=== PATIENT | male | born 1930 | race Caucasian/White ===

== ENCOUNTER 2019-06-15 16:34 | Inpatient (IN) | payer MEDICARE ==
[~2019-06-15] VITALS: Ht 154.9 cm; Wt 49.0 kg
[2019-06-15] MEDS ORDERED: ALLO300T2 PO (16:53)
[2019-06-15] MEDS ORDERED: CAL1TABL PO (16:53)
[2019-06-15] MEDS ORDERED: ESCI10TA PO (16:53)
[2019-06-15] MEDS ORDERED: DONE5TAB34 PO (16:53)
[2019-06-15] MEDS ORDERED: ATOR40TA PO (16:53)
[2019-06-15] MEDS ORDERED: ASPI1CPM PO (16:53)
[2019-06-15] MEDS ORDERED: IPRA0.2S49 IH (17:08)
[2019-06-15] MEDS ORDERED: HYDR-4077 PO (17:08)
[2019-06-15] MEDS ORDERED: CALC-494 PO (17:08)
[2019-06-15] MEDS ORDERED: NIFE-2 PO (17:08)
[2019-06-15] MEDS ORDERED: NITR0.4T48 SL (17:08)
[2019-06-15] MEDS ORDERED: ALEN70TA6 PO (17:08)
[2019-06-15] MEDS ORDERED: BUME1TAB8 PO (17:08)
[2019-06-15] MEDS ORDERED: COLC0.6C3 PO (17:08)
[2019-06-15] MEDS ORDERED: LOSA100T31 PO (17:08)
[2019-06-15 17:34] LABS: BASOPHILS % (AUTO) 0.2 % (0.0-2.0); EOSINOPHILS % (AUTO) 1.7 % (0.0-6.0); HEMATOCRIT 30 % (39-51); HEMOGLOBIN 10.2 g/dL (13.5-17.5); LYMPHOCYTES # (AUTO) 0.6 /CMM (0.8-4.8); LYMPHOCYTES % (AUTO) 14.8 % (20.0-44.0); MEAN CORPUSCULAR HGB CONC 34 g/dl (31.0-36.0); MEAN CORPUSCULAR VOLUME 101 fL (80-96); MONOCYTES # (AUTO) 0.2 /CMM (0.1-1.30); MONOCYTES % (AUTO) 4.3 % (2.0-12.0); NEUTROPHILS # (AUTO) 3.4 /CMM (1.8-8.9); PLATELET COUNT (AUTO) 140 /CMM (150-450); WHITE BLOOD COUNT (AUTO) 4.3 K/uL (4.3-11.0)
[2019-06-15 17:50] LABS: ALANINE AMINOTRANSFERASE 30 U/L (12-78); ALBUMIN 3.5 g/dL (3.4-5.0); ALKALINE PHOSPHATASE 102 U/L (46-116); ASPARTATE AMINOTRANSFERASE 36 U/L (15-37); BILIRUBIN,DIRECT 0.2 mg/dL (0.0-0.2); BILIRUBIN,TOTAL 0.7 mg/dL (0.2-1.0); CARBON DIOXIDE 23 mmol/L (21-32); CHLORIDE 96 mmol/L (98-107); CREATININE 6.4 mg/dL (0.6-1.3); GLUCOSE 77 mg/dL (74-106); POTASSIUM 4.4 mmol/L (3.5-5.1); SODIUM SERUM 133 mmol/L (136-145); TOTAL PROTEIN, SERUM 6.9 g/dL (6.4-8.2)
[2019-06-15 17:51] LABS: UREA NITROGEN, BLOOD 118 mg/dL (7-18)
--- NOTE | 2019-06-15 18:24 | NUR ---
PAGED [facility].
[2019-06-15] MEDS ORDERED: PIPERACILLIN /TAZOBACTAM 2.25 G in IV D5W 50 ML IV ONE (19:00)
[2019-06-15] MEDS ORDERED: VANCOMYCIN 1 GM in IV D5W 250 ML IV ONE (19:00)
--- NOTE | 2019-06-15 19:13 | NUR ---
Patient awke to name only noted family @ bedside made aware paln of care noted bilateral arms and hands bruises family aware
--- NOTE | 2019-06-15 19:20 | NUR ---
transfer care report to Tommy Mosquera
[2019-06-15] MEDS ORDERED: LIDOCAINE 2% JEL UROJET 10 ML MM ONE (19:29)
--- NOTE | 2019-06-15 19:40 | NUR ---
PAGED [facility].
[2019-06-15 19:42] LABS: APPEARANCE,URINE Clear (CLEAR); BILIRUBIN,URINE Negative (NEGATIVE); BLOOD, URINE Negative Ery/uL (NEGATIVE); COLOR,URINE Yellow (YELLOW); KETONES,URINE Negative (NEGATIVE); LEUKOCYTE ESTERASE ,URINE Negative (NEGATIVE); NITRITE, URINE Negative (NEGATIVE); PROTEIN,URINE 30 mg/dl (NEGATIVE); UGLUCOSE Negative (NEGATIVE); UROBILINOGEN,URINE 0.2 EU/dL (0.2)
--- NOTE | 2019-06-15 20:28 | NUR ---
REPORT GIVEN TO THERESA CARTER.
[2019-06-15] MEDS ORDERED: FEE PK DOSING 1 MIN EA MC ONE (20:49)
--- NOTE | 2019-06-15 20:50 | NUR ---
PT TRANSPORTED TO UNIT ON [facility] WITH EMT AND RN AT BEDSIDE W/ ACLS PROTOCOL. NAD NOPTED DURING TRANSPORT.
[2019-06-15 21:00] VITALS: BP 166/82
[2019-06-15] MEDS ORDERED: ONDANSETRON HCL/PF 4 MG/2 ML VIAL IVP PRN (21:00)
[2019-06-15] MEDS ORDERED: ACETAMINOPHEN 325 MG TABLET PO PRN (21:00)
[2019-06-15] MEDS ORDERED: Z GUARD REMEDY 2 OZ OINT TP PRN (21:00)
[2019-06-15] MEDS ORDERED: NITROGLYCERIN 0.4 MG/TAB BOTTLE SL PRN (21:00)
--- NOTE | 2019-06-15 21:00 | NUR ---
SKIN DIVING TEACHER ADMITTING NOTES RECEIVED PATIENT VIA GURNEY FROM ER, ON 2L VIA NC SOB NOTED ON EXERTION ,NOTED WITH PRODUCTIVE COUGH THICK WHITE YELLOW PHLEM PRESENT, SUCTION SET UP AT BEDSIDE, ALERT AND ORIENTED X 3, ABLE TO MAKE SIMPLE NEEDS KNOWN WITH EPISODES OF FORGETFULNESS, RESPIRATIONS EVEN AND UNLABORED AT THIS TIME, PLACED ON JEWEL HOLE CORNERER SR [address], KIDD CATHETER INTACT AND DRAINING PROPER ALIGNMENT, URINE YELLOW AND CLEAR, ASPIRATION PRECAUTIONS RENDERED, LEFT AC #18 G INTACT AND PATNET, NO REDNESS, NO INFILTRATION PRESENT, BODY ASSESSMENT DONE, NOTED WITH SACRAL REDNESS, LEFT AND RIGHT ARM SCATTERED DISCOLORATIONS AND RIGHT ARM SCATTERED SKIN TEARS AND SCABS, SITES CLEANSED AND COVERED, ORIENTED TO STAFF AND CALL LIGHT AND KEPT WITHIN REACH, SAFETY PRECAUTIONS IN PLACE, LOW BED AND LOCKED, SITTER AT BEDSIDE, ALL NEEDS ATTENDED AT THIS TIME, WILL CONTINUE TO MONITOR AND FOLLOW MD ORDERS, AT THIS TIME, REMAINS COMFORTABLE DENIES ANY PAIN.
[2019-06-15] MEDS: IV NS 0.9% 1,000 ML IV PRN (21:42)
[2019-06-15] MEDS: ATORVASTATIN 40 MG TABLET PO SCH (21:44)
[2019-06-15] MEDS ORDERED: CEFTRIAXONE 1 G VIAL ONE (22:22)
[2019-06-15] MEDS: CEFTRIAXONE 1 G in IV D5W 50 ML IV SCH (22:30)
[2019-06-15] MEDS ORDERED: AGGRENOX(ASA/DIPYRIDAMOLE) 1 CAP CPMP.12HR PO ONE (23:11)
[2019-06-16] VITALS: BP 169/71
--- NOTE | 2019-06-16 | NUR ---
RAUL RUEDA MADE HOSPITALIST AWARE OF VITAL SIGNS TRENDING AT 169/71 HR 82 , PT [id number].NO NEW ORDERS AT THIS TIME, CONTINUE TO MONITOR. Addendum: 06/16/19 at 0236 by THERESA SAHA RN CLARIFICATION TELE NOTES
[2019-06-16] MEDS: AGGRENOX(ASA/DIPYRIDAMOLE) 1 CAP CPMP.12HR PO SCH ×3 (00:09→20:40)
--- NOTE | 2019-06-16 02:30 | NUR ---
LEARNING ADMINISTRATOR NOTES HOSPITALIST BOONE MADE AWARE OF TROPONIN #2 RESULTS NO NEW ORDER AT THIS TIME.
[2019-06-16 04:19] VITALS: BP 149/75
[2019-06-16 06:26] LABS: BASOPHILS % (AUTO) 0.1 % (0.0-2.0); EOSINOPHILS % (AUTO) 0.3 % (0.0-6.0); HEMATOCRIT 31 % (39-51); HEMOGLOBIN 10.6 g/dL (13.5-17.5); LYMPHOCYTES # (AUTO) 0.6 /CMM (0.8-4.8); MEAN CORPUSCULAR HGB CONC 34 g/dl (31.0-36.0); MEAN CORPUSCULAR VOLUME 100 fL (80-96); MONOCYTES # (AUTO) 0.3 /CMM (0.1-1.30); MONOCYTES % (AUTO) 3.4 % (2.0-12.0); NEUTROPHILS % (AUTO) 88.2 % (43.0-81.0); PLATELET COUNT (AUTO) 147 /CMM (150-450); RED BLOOD CELL COUNT(AUTO) 3.12 MIL/uL (4.5-6.0)
--- NOTE | 2019-06-16 06:52 | NUR ---
EXTENSION WORK INSTRUCTOR CLOSING NOTES PATIENT ON 2L VIA NC ,NOTED WITH PRODUCTIVE COUGH THICK WHITE YELLOW PHLEM PRESENT UPON SUCTION ,SET UP AT BEDSIDE, ALERT AND ORIENTED X 3, ABLE TO MAKE SIMPLE NEEDS KNOWN WITH EPISODES OF FORGETFULNESS, RESPIRATIONS EVEN AND UNLABORED AT THIS TIME, PLACED ON RISK CONSULTING TREASURY DIRECTOR SR 82, KIDD CATHETER INTACT AND DRAINING PROPER ALIGNMENT, URINE YELLOW AND CLEAR 800CC, ASPIRATION PRECAUTIONS RENDERED, LEFT AC #18 G INTACT AND PATENT, NO REDNESS, NO INFILTRATION PRESENT, MEPILEX IN PLACE TO SACRAL REDNESS, LEFT AND RIGHT ARM SCATTERED DISCOLORATIONS AND RIGHT ARM SCATTERED SKIN TEARS AND SCABS, SITES CLEANSED AND COVERED,CALL LIGHT KEPT WITHIN REACH, SAFETY PRECAUTIONS IN PLACE, LOW BED AND LOCKED, SITTER AT BEDSIDE, ALL NEEDS ATTENDED AT THIS TIME, WILL CONTINUE TO MONITOR AND ENDORSE TO NEXT SHIFT, NO FURTHER CHANGES NOTED.
[2019-06-16 06:55] LABS: CHOLESTEROL 128 mg/dL (<200); HDL CHOLESTEROL 76 mg/dL (40-60); LDL 41 mg/dL (0-99); TRIGLYCERIDES 59 mg/dL (30-150)
[2019-06-16 06:58] LABS: ALANINE AMINOTRANSFERASE 31 U/L (12-78); ALBUMIN 3.4 g/dL (3.4-5.0); ALKALINE PHOSPHATASE 101 U/L (46-116); ASPARTATE AMINOTRANSFERASE 36 U/L (15-37); BILIRUBIN,TOTAL 0.7 mg/dL (0.2-1.0); CALCIUM, SERUM 9.4 mg/dL (8.5-10.1); CARBON DIOXIDE 24 mmol/L (21-32); CHLORIDE 99 mmol/L (98-107); CREATININE 5.5 mg/dL (0.6-1.3); GLUCOSE 99 mg/dL (74-106); MAGNESIUM 2.2 mg/dL (1.8-2.4); PHOSPHORUS 4.6 mg/dL (2.5-4.9); POTASSIUM 4.1 mmol/L (3.5-5.1); SODIUM SERUM 136 mmol/L (136-145); TOTAL PROTEIN, SERUM 6.7 g/dL (6.4-8.2)
[2019-06-16 06:59] LABS: UREA NITROGEN, BLOOD 104 mg/dL (7-18)
--- NOTE | 2019-06-16 07:30 | NUR ---
RN MS NOTES PT IN BED, AWAKE, ALERT AND VERBALLY RESPONSIVE, DENIES PAIN, NOT IN DISTRESS, WITH EPISODES OF PRODUCTIVE COUGH, IV FLUIDS INFUSING WELL, F/C IN PLACE, DRAINING WELL, CAREGIVER AT BEDSIDE, CALL LIGHT WITHIN REACH, TURNED AND REPOSITIONED FOR COMFORT, KEPT WARM AND COMFORTABLE IN BED.
[2019-06-16] MEDS: IPRATROPIUM NEB FS 0.5 MG/2.5 ML AMPUL.NEB IH SCH ×3 (07:35→22:56)
[2019-06-16 08:00] VITALS: BP 157/78
[2019-06-16] MEDS: ESCITALOPRAM OXALATE (10 MG) 10 MG TABLET PO SCH (08:46)
[2019-06-16] MEDS: CALCIUM CARBONATE 500 MG TAB.CHEW PO SCH ×2 (08:46→17:33)
[2019-06-16] MEDS: ALLOPURINOL 100 MG TABLET PO SCH (08:47)
[2019-06-16] MEDS: NIFEdipine XL (30MG) 30 MG TAB PO SCH ×2 (08:47→16:27)
[2019-06-16] MEDS: LOSARTAN POTASSIUM 50 MG TABLET PO SCH (08:47)
[2019-06-16] MEDS: DONEPEZIL 5 MG TABLET PO SCH (08:47)
[2019-06-16] MEDS: COLCHICINE 0.6 MG TABLET PO SCH ×2 (08:47→17:33)
[2019-06-16] MEDS: hydrALAZINE HCL 50 MG TABLET PO SCH ×2 (08:48→16:27)
[2019-06-16] MEDS: LACTOBACILLUS RHAMNOSUS GG 1 EACH CAP.SPRINK PO SCH ×2 (09:01→17:33)
[2019-06-16] MEDS: IV NS 0.9% 1,000 ML IV PRN (09:53)
--- NOTE | 2019-06-16 10:00 | NUR ---
RN MS NOTES PT SEEN AND EXAMINED BY DR. BERNARD, PLAN OF CARE DISCUSSED WITH FAMILY MEMBERS AND CAREGIVER, VERBALIZED UNDERSTANDING.
--- NOTE | 2019-06-16 12:33 | NUR ---
RN MS NOTES PT IN BED, RESTING, NOT IN PAIN OR DISTRESS, CAREGIVER AND FAMILY AT BEDSIDE, KEPT HOB ELEVATED, SECRETIONS SUCTIONED NEEDED, KEPT WARM AND COMFORTABLE IN BED.
[2019-06-16 12:52] LABS: CREATININE, URINE 33.5 MG/DL (30.0-125.0); URINE TOTAL PROTEIN 45.8 mg/dL (0-11.9)
--- NOTE | 2019-06-16 13:22 | NUR ---
RN MS NOTES SPOKE WITH PT'S CHYNA AT BEDSIDE REGARDING PT'S CODE STATUS, PT AND FAMILY HAVE DISCUSSED IT AND THEY WOULD LIKE PT TO BE DNR/DNI, DR. BERNARD INFORMED, ORDER GIVEN FOR DNR/DNI CODE STATUS.
[2019-06-16 13:32] LABS: APPEARANCE,URINE Clear (CLEAR); BILIRUBIN,URINE Negative (NEGATIVE); BLOOD, URINE Small Ery/uL (NEGATIVE); COLOR,URINE Yellow (YELLOW); KETONES,URINE Negative (NEGATIVE); LEUKOCYTE ESTERASE ,URINE Negative (NEGATIVE); NITRITE, URINE Negative (NEGATIVE); PROTEIN,URINE 30 mg/dl (NEGATIVE); UGLUCOSE Negative (NEGATIVE); UROBILINOGEN,URINE 0.2 EU/dL (0.2)
[2019-06-16 13:33] LABS: BACTERIA,URINE Rare /HPF (None Seen); SQUAMOUS EPITHELIAL CELL,UR Rare /HPF (None Seen); WBC,URINE 0-2 /HPF (0-3)
[2019-06-16 13:49] LABS: EOSINOPHIL,URINE None Seen
[2019-06-16 16:00] VITALS: BP 95/50
[2019-06-16] MEDS ORDERED: IV NS 0.9% 500 ML IV ONE (17:00)
--- NOTE | 2019-06-16 17:00 | NUR ---
RN MS NOTES PT NOTED TO HAVE BP OF 95/50 HR 82, RECHECKED WITH MANUAL BP JEREMY, WAS 90/60 HR 80, PT AWAKE AND ALERT, NO COMPLAINT OF DIZZINESS, NO CHANGE IN LOC NOTED, DR. BERNARD INFORMED, ORDERED TO HOLD LOSARTAN IN AM AND TO GIVE BOLUS NS 500ML ONE TIME, PT INFORMED, ORDERS NOTED AND CARRIED OUT.
--- NOTE | 2019-06-16 19:25 | NUR ---
RN OPENING NOTES RECEIVED PATIENT FROM RAUL DEMPSEY, AWAKE IN BED. A/O X 3, ABLE TO COMMUNICATE NEEDS. NO SIGNS OF RESPIRATORY DISTRESS. NO SHORTNESS OF BREATH NOTED. IV FLUIDS INFUSING WELL, NO SIGNS OF INFECTION/INFILTRATION. F/C IN PLACE, DRAINING WELL, CAREGIVER AT BED SIDE. PATIENT DENIES PAIN AT THIS TIME. HOB ELEVATED, WILL SUCTION SECRETIONS PRN. SAFETY PRECAUTIONS IMPLEMENTED; CALL LIGHT WITHIN REACH, BED LOWEST POSITION, BED LOCKED, SIDE RAILS UP X2. WILL CONTINUE TO MONITOR.
[2019-06-16 20:00] VITALS: BP 105/44
[2019-06-16] MEDS: CEFTRIAXONE 1 G in IV D5W 50 ML IV SCH (20:29)
[2019-06-16 20:40] VITALS: BP 131/65
[2019-06-16] MEDS: ATORVASTATIN 40 MG TABLET PO SCH (21:02)
[2019-06-17] MEDS: IV NS 0.9% 1,000 ML IV PRN ×2 (00:29→10:21)
[2019-06-17 06:31] LABS: BASOPHILS % (AUTO) 0.1 % (0.0-2.0); EOSINOPHILS % (AUTO) 0.1 % (0.0-6.0); HEMATOCRIT 26 % (39-51); HEMOGLOBIN 8.7 g/dL (13.5-17.5); LYMPHOCYTES # (AUTO) 0.8 /CMM (0.8-4.8); LYMPHOCYTES % (AUTO) 10.3 % (20.0-44.0); MEAN CORPUSCULAR HGB CONC 34 g/dl (31.0-36.0); MEAN CORPUSCULAR VOLUME 101 fL (80-96); MONOCYTES # (AUTO) 0.2 /CMM (0.1-1.30); MONOCYTES % (AUTO) 3.2 % (2.0-12.0); NEUTROPHILS # (AUTO) 6.4 /CMM (1.8-8.9); NEUTROPHILS % (AUTO) 86.3 % (43.0-81.0); PLATELET COUNT (AUTO) 110 /CMM (150-450); RED BLOOD CELL COUNT(AUTO) 2.56 MIL/uL (4.5-6.0); WHITE BLOOD COUNT (AUTO) 7.5 K/uL (4.3-11.0)
[2019-06-17 06:36] LABS: ALANINE AMINOTRANSFERASE 23 U/L (12-78); ALBUMIN 2.7 g/dL (3.4-5.0); ALKALINE PHOSPHATASE 74 U/L (46-116); ASPARTATE AMINOTRANSFERASE 25 U/L (15-37); BILIRUBIN,TOTAL 0.6 mg/dL (0.2-1.0); CALCIUM, SERUM 8.3 mg/dL (8.5-10.1); CARBON DIOXIDE 21 mmol/L (21-32); CHLORIDE 102 mmol/L (98-107); CREATININE 5.4 mg/dL (0.6-1.3); GLUCOSE 89 mg/dL (74-106); MAGNESIUM 2.1 mg/dL (1.8-2.4); PHOSPHORUS 4.4 mg/dL (2.5-4.9); POTASSIUM 3.9 mmol/L (3.5-5.1); SODIUM SERUM 137 mmol/L (136-145); TOTAL PROTEIN, SERUM 5.7 g/dL (6.4-8.2)
[2019-06-17 06:37] LABS: UREA NITROGEN, BLOOD 100 mg/dL (7-18)
--- NOTE | 2019-06-17 06:46 | NUR ---
RN CLOSING NOTES PATIENT IS CURRENTLY ASLEEP, RESTING IN BED, EASILY AWAKENED TO MY VOICE. PATIENT ON 2LPM VIA NASAL CANNULA. CAREGIVER AT BED SIDE THROUGHOUT THE NIGHT. PATIENT A/O X 3, ABLE TO MAKE NEEDS KNOWN. NO SIGNS OF RESPIRATORY DISTRESS. RESPIRATIONS EVEN AND UNLABORED AT THIS TIME. KIDD CATHETER REMAINS INTACT AND DRAINING WELL WITH CLEAR, YELLOW URINE. MAINTAINED ASPIRATION PRECAUTIONS. LEFT AC #18G INTACT AND PATENT, NO INFECTION/INFILTRATION PRESENT. MEPILEX ON SACRUM. PATIENT WAS KEPT CLEAN, DRY AND COMFORTABLE. NO FACIAL GRIMACING OR DISCOMFORT INDICATING PAIN AT THIS TIME. BLOOD PRESSURE STABLE. ALL NEEDS MET AT THIS TIME. PATIENT REQUESTS THAT AM DESK OPERATOR TO GIVE HIM BED BATH. SAFETY PRECAUTIONS IMPLEMENTED; CALL LIGHT WITHIN REACH, BED LOWEST POSITION, BED LOCKED, SIDE RAILS UP X2. WILL ENDORSE TO DAYSHIFT NURSE FOR CONTINUITY OF CARE.
[2019-06-17 06:48] LABS: CREATINE KINASE, TOTAL 47 U/L (39-308)
[2019-06-17 07:30] VITALS: BP 107/71
--- NOTE | 2019-06-17 07:40 | NUR ---
RN MS OPENING NOTES Patient received on 2L nasal cannula, no sob noted, no s/s of pain at this time. Patient sleeping comfortably and easily awakened. Daley remains in place and is draining. L AC #18 with NS @ 100 mL per hour. Bed at the lowest setting, call light within reach, side rails up x2 and sitter at bedside at all times. Hold losartan AM
[2019-06-17] MEDS: IPRATROPIUM NEB FS 0.5 MG/2.5 ML AMPUL.NEB IH SCH ×3 (07:55→23:35)
[2019-06-17] MEDS: LOSARTAN POTASSIUM 50 MG TABLET PO SCH (08:29)
[2019-06-17] MEDS: DONEPEZIL 5 MG TABLET PO SCH (08:57)
[2019-06-17] MEDS: LACTOBACILLUS RHAMNOSUS GG 1 EACH CAP.SPRINK PO SCH ×2 (08:57→17:19)
[2019-06-17] MEDS: COLCHICINE 0.6 MG TABLET PO SCH ×2 (08:57→17:19)
[2019-06-17] MEDS: ESCITALOPRAM OXALATE (10 MG) 10 MG TABLET PO SCH (08:57)
[2019-06-17] MEDS: ALLOPURINOL 100 MG TABLET PO SCH (08:57)
[2019-06-17] MEDS: CALCIUM CARBONATE 500 MG TAB.CHEW PO SCH ×2 (08:57→17:19)
[2019-06-17] MEDS: hydrALAZINE HCL 50 MG TABLET PO SCH ×2 (08:57→17:00)
[2019-06-17] MEDS: NIFEdipine XL (30MG) 30 MG TAB PO SCH ×2 (08:57→17:00)
[2019-06-17] MEDS: AGGRENOX(ASA/DIPYRIDAMOLE) 1 CAP CPMP.12HR PO SCH ×2 (09:00→20:39)
[2019-06-17 11:56] LABS: IRON, SERUM 21 ug/dl (50-175); TOTAL IRON BINDING CAPACITY 227 ug/dl (250-450)
[2019-06-17] MEDS ORDERED: EPOETIN ALFA (10,000 UNIT) 10,000 UNIT/ML VIAL SQ SCH (12:00)
--- NOTE | 2019-06-17 12:50 | NUR ---
WOUND CARE CONSULT: PT PRESENTS WITH VERY BONY SACRAL AREA WITH BLANCHABLE REDNESS AND RT EARLOBE DRY LESION, PRESENT ON ADMISSION. RECOMMENDATIONS MADE FOR SKIN PROTECTION. DISCUSSED WITH NURSING STAFF. DEFER TO MD FOR EAR LESION. CURRENT FLORINDA SCORE IS 14. WILL SEE PRN. IN AGREEMENT WITH PLAN OF CARE. Addendum: 06/17/19 at 1251 by ZAK PAT WNDNU Amended: Links added.
[2019-06-17 16:20] VITALS: BP 94/49
--- NOTE | 2019-06-17 17:27 | NUR ---
RN NOTES Held BP meds due to patients low BP
--- NOTE | 2019-06-17 18:48 | NUR ---
RN CLOSING NOTES Patient remains on 2L nasal cannula, no sob noted, patient denies pain at this time. Patient ermains a/o x3. Daley cath draining well. L AC #18 drains well, with NS @ 100 mL per hour. BP meds held due to low BP. Bed at the lowest setting, call light within reach, side rails up x2. Will give report to NOC RN for MAXIMINO bedside.
[2019-06-17 20:00] VITALS: BP 128/50
[2019-06-17] MEDS: CEFTRIAXONE 1 G in IV D5W 50 ML IV SCH (20:37)
[2019-06-17] MEDS: ATORVASTATIN 40 MG TABLET PO SCH (21:47)
--- NOTE | 2019-06-17 23:00 | NUR ---
RN NOTES RECEIVED PT. FROM ANOTHER NURSE , PT IS AWAKE ON HIS BED, CAREGIVER AT BEDSIDE, A/OX3, EXPLAINED TO THE PT REGARDING HIS PROCEDURE TOMORROW... PER CAREGIVER HE WILL CALL PT'S TO COME EARLY TO SIGN THE CONSENT, CALL LIGHT WITHIN REACH, [id number], CONTINUE TO MONITOR
--- NOTE | 2019-06-18 05:30 | NUR ---
RN NOTES DR. BROWN CALLED AND INFORMED HIM THAT PT. CAREGIVER WILL CALL THE PT'S THIS MORNING TO GIVE A CONSENT
[2019-06-18] MEDS: IV NS 0.9% 1,000 ML IV PRN (05:36)
[2019-06-18 06:30] LABS: EOSINOPHILS % (AUTO) 0.7 % (0.0-6.0); HEMATOCRIT 25 % (39-51); HEMOGLOBIN 8.3 g/dL (13.5-17.5); LYMPHOCYTES # (AUTO) 0.7 /CMM (0.8-4.8); LYMPHOCYTES % (AUTO) 12.2 % (20.0-44.0); MEAN CORPUSCULAR HGB CONC 33 g/dl (31.0-36.0); MEAN CORPUSCULAR VOLUME 101 fL (80-96); MONOCYTES # (AUTO) 0.3 /CMM (0.1-1.30); MONOCYTES % (AUTO) 4.5 % (2.0-12.0); NEUTROPHILS % (AUTO) 82.6 % (43.0-81.0); PLATELET COUNT (AUTO) 126 /CMM (150-450)
[2019-06-18 06:59] LABS: CALCIUM, SERUM 7.9 mg/dL (8.5-10.1); CARBON DIOXIDE 20 mmol/L (21-32); CHLORIDE 102 mmol/L (98-107); CREATININE 5.8 mg/dL (0.6-1.3); GLUCOSE 92 mg/dL (74-106); PHOSPHORUS 3.6 mg/dL (2.5-4.9); SODIUM SERUM 135 mmol/L (136-145)
[2019-06-18 07:05] LABS: UREA NITROGEN, BLOOD 101 mg/dL (7-18)
--- NOTE | 2019-06-18 07:25 | NUR ---
MS RN NOTES PATIENT IN BED ALERT ORIENTED X 3. NO ACUTE DISTRESS NOTED. NOTIFIED THAT DR BROWN IS COMING AT 0800 AND SURGERY WILL BE DONE EARLIER, PATIENT AGREED AND GAVE CONSENT. CHYNA IS AWARE REGARDING SURGERY AND CHANGE OF SCHEDULE AND AGREED TO THE SURGERY.
[2019-06-18] MEDS: IPRATROPIUM NEB FS 0.5 MG/2.5 ML AMPUL.NEB IH SCH ×3 (07:34→23:21)
--- NOTE | 2019-06-18 07:40 | NUR ---
MS RN NOTES PATIENT TRANSPORTED FOR SURGERY WITH STABLE VITAL SIGNS. ALERT ORIENTED X 3. NO ACUTE DISTRESS NOTED.
[2019-06-18] MEDS ORDERED: HEPARIN SODIUM, PORCINE 1,000 UNIT/ML VIAL ONE (07:49)
[2019-06-18] MEDS ORDERED: LIDOCAINE 0.5% HCL 50 ML VIAL ONE (07:50)
[2019-06-18] MEDS ORDERED: LIDOCAINE HCL/MPF 1% 30 ML VIAL IJ ONE (07:51)
[2019-06-18 08:00] VITALS: BP 103/49
[2019-06-18 08:06] LABS: *SPE A/G RATIO 1.3 (0.7-1.7); *SPE ALBUMIN 3.1 g/dL (2.9-4.4); *SPE ALPHA-1-GLOBULIN 0.4 g/dL (0.0-0.4); *SPE ALPHA-2-GLOBULIN 0.6 g/dL (0.4-1.0); *SPE BETA GLOBULIN 0.7 g/dL (0.7-1.3); *SPE GLOBULIN, TOTAL 2.4 g/dL (2.2-3.9); *SPE M-SPIKE 0.3 g/dL (Not Observed); *SPEGAMMA GLOBULIN 0.8 g/dL (0.4-1.8)
[2019-06-18] MEDS: LOSARTAN POTASSIUM 50 MG TABLET PO SCH (09:00)
[2019-06-18] MEDS: AGGRENOX(ASA/DIPYRIDAMOLE) 1 CAP CPMP.12HR PO SCH ×2 (09:00→21:30)
[2019-06-18] MEDS: NIFEdipine XL (30MG) 30 MG TAB PO SCH ×2 (09:00→16:54)
[2019-06-18] MEDS: hydrALAZINE HCL 50 MG TABLET PO SCH ×2 (09:00→16:54)
--- NOTE | 2019-06-18 09:22 | NUR ---
MS RN NOTES PATIENT CAME BACK FROM SURGERY WITH NEW ORDERS FROM DR BROWN , NOTED AND CARRIED OUT.PATIENT WITH STABLE VITAL SIGNS. NO ACUTE DISTRESS NOTED. BREATHING UNLABORED. NO SOB NOTED. ALERT ORIENTED X 3.PATIENT WITH RIGHT UPPER CHEST PERM CATH WITH DRESSING INTACT, CLEAN AND DRY. WILL CONTINUE TO MONITOR PATIENT. , DAUGTHER AND CAREGIVER AT BED SIDE.
[2019-06-18] MEDS: DONEPEZIL 5 MG TABLET PO SCH (09:48)
[2019-06-18] MEDS: COLCHICINE 0.6 MG TABLET PO SCH ×2 (09:48→16:52)
[2019-06-18] MEDS: ALLOPURINOL 100 MG TABLET PO SCH (09:48)
[2019-06-18] MEDS: LACTOBACILLUS RHAMNOSUS GG 1 EACH CAP.SPRINK PO SCH ×2 (09:48→16:53)
[2019-06-18] MEDS: CALCIUM CARBONATE 500 MG TAB.CHEW PO SCH ×2 (09:49→16:53)
[2019-06-18] MEDS: ESCITALOPRAM OXALATE (10 MG) 10 MG TABLET PO SCH (09:49)
[2019-06-18] MEDS: ENSURE ENLIVE CHOC 237 ML CAN PO SCH (09:52)
--- NOTE | 2019-06-18 10:22 | NUR ---
MS RN NOTES PATIENT WITH STABLE VITAL SIGNS. NO ACUTE DISTRESS NOTED. BREATHING UNLABORED. NO SOB NOTED. ALERT ORIENTED X 3.PATIENT WITH RIGHT UPPER CHEST PERM CATH WITH DRESSING INTACT, CLEAN AND DRY, NO BLEEDING NOTED. WILL CONTINUE TO MONITOR PATIENT.
[2019-06-18] MEDS: EPOETIN ALFA (10,000 UNIT) 10,000 UNIT/ML VIAL SQ SCH (14:43)
--- NOTE | 2019-06-18 15:00 | NUR ---
MS RN NOTES DIALYSIS DONE TODAY PATIENT WITH STABLE VITAL SIGNS.
[2019-06-18] MEDS: SOD FERRIC GLUC 125 MG in IV NS 0.9% 100 ML IV SCH (15:02)
[2019-06-18] MEDS ORDERED: VANCOMYCIN 1 GM in IV D5W 250 ML IV ONE (16:00)
[2019-06-18 16:09] VITALS: BP 113/49
--- NOTE | 2019-06-18 19:00 | NUR ---
MS RN NOTES PATIENT IN BED ALERT ORIENTED X 3. WITH STABLE VITAL SIGNS. NO ACUTE DISTRESS NOTED. BREATHING UNLABORED. NO SOB NOTED. RIGHT UPPER CHEST PERM CATH WITH DRESSING INTACT, CLEAN AND DRY, NO BLEEDING NOTED. DUE MEDICATIONS GIVEN. NO ASE NOTED. NEEDS ATTENDED AND ANTICIPATED. KEPT CLEAN DRY AND COMFORTABLE. SAFETY MEASURES IN PLACE. CALL LIGHT WITHIN REACH. WILL ENDORSE TO NIGHT NURSE FOR CONTINUITY OF CARE.
[2019-06-18 20:00] VITALS: BP 127/61
--- NOTE | 2019-06-18 20:00 | NUR ---
RN NOTES PATIENT ALERT AND ORIENTED X3, STABLE ON 2LPM VIA NC, DENIES PAIN AT THIS TIME, S/P PERMA CATH PLACEMENT TO RIGHT CHEST WALL, DRESSING DRY AND INTACT, ON HD, KIDD CATHETER DRAINING, HAS BPH, SOFT STOOL X1, PRIVATE CAREGIVER AT THE BEDSIDE. KEPT SAFE, CALL LIGHT WITHIN REACH.
[2019-06-18] MEDS ORDERED: VANCOMYCIN 500 MG in IV D5W 100 ML IV SCH (21:00)
[2019-06-18] MEDS: CEFTRIAXONE 1 G in IV D5W 50 ML IV SCH (21:30)
[2019-06-18] MEDS: ATORVASTATIN 40 MG TABLET PO SCH (21:31)
--- NOTE | 2019-06-19 03:57 | NUR ---
RN NOTES PRIVACY OFFICER REPORTED X3 BM SINCE START OF SHIFT, ON ASSESSMENT, STOOL IS SOFT, MILD ODOR, WILL CONSIDER COLLECTING STOOL FOR CDIFF IF THERE IS ANOTHER BM.
[2019-06-19] MEDS ORDERED: VANCOMYCIN 500 MG in IV D5W 100 ML IV PRN (06:00)
[2019-06-19 06:38] LABS: EOSINOPHILS % (AUTO) 1.6 % (0.0-6.0); HEMATOCRIT 26 % (39-51); HEMOGLOBIN 8.5 g/dL (13.5-17.5); LYMPHOCYTES # (AUTO) 0.6 /CMM (0.8-4.8); LYMPHOCYTES % (AUTO) 13.3 % (20.0-44.0); MEAN CORPUSCULAR HGB CONC 33 g/dl (31.0-36.0); MEAN CORPUSCULAR VOLUME 101 fL (80-96); MONOCYTES # (AUTO) 0.3 /CMM (0.1-1.30); MONOCYTES % (AUTO) 6.6 % (2.0-12.0); NEUTROPHILS # (AUTO) 3.5 /CMM (1.8-8.9); NEUTROPHILS % (AUTO) 78.5 % (43.0-81.0); PLATELET COUNT (AUTO) 99 /CMM (150-450); RED BLOOD CELL COUNT(AUTO) 2.56 MIL/uL (4.5-6.0); WHITE BLOOD COUNT (AUTO) 4.4 K/uL (4.3-11.0)
[2019-06-19 06:42] LABS: CALCIUM, SERUM 8.2 mg/dL (8.5-10.1); CARBON DIOXIDE 26 mmol/L (21-32); CHLORIDE 105 mmol/L (98-107); CREATININE 2.9 mg/dL (0.6-1.3); GLUCOSE 76 mg/dL (74-106); MAGNESIUM 1.6 mg/dL (1.8-2.4); PHOSPHORUS 2.4 mg/dL (2.5-4.9); POTASSIUM 3.5 mmol/L (3.5-5.1); SODIUM SERUM 140 mmol/L (136-145); UREA NITROGEN, BLOOD 45 mg/dL (7-18)
--- NOTE | 2019-06-19 06:43 | NUR ---
RN NOTES PM SHIFT PATIENT ALERT AND ORIENTED X3, STABLE ON 2LPM VIA NC, NO CHANGE OF CONDITION DURING SHIFT, KIDD CATHETER DRAINING WELL, BM X3, VS STABLE, CAREGIVER AT THE BEDSIDE, ANOTHER HD TODAY, ROCEPHIN FOR UTI
--- NOTE | 2019-06-19 07:30 | NUR ---
RN MS NOTES PT IN BED, ASLEEP, EASY TO AROUSE, ALERT AND ORIENTED, NO COMPLAINT OF PAIN, NOT IN DISTRESS, RESPIRATIONS NORMAL, CAREGIVER AT BEDSIDE, KEPT WARM AND COMFORTABLE IN BED.
[2019-06-19 08:00] VITALS: BP 159/69
[2019-06-19] MEDS: IPRATROPIUM NEB FS 0.5 MG/2.5 ML AMPUL.NEB IH SCH ×3 (08:36→23:09)
[2019-06-19] MEDS: COLCHICINE 0.6 MG TABLET PO SCH ×2 (08:55→16:01)
[2019-06-19] MEDS: CALCIUM CARBONATE 500 MG TAB.CHEW PO SCH ×2 (08:55→16:00)
[2019-06-19] MEDS: LACTOBACILLUS RHAMNOSUS GG 1 EACH CAP.SPRINK PO SCH ×2 (08:55→16:01)
[2019-06-19] MEDS: AGGRENOX(ASA/DIPYRIDAMOLE) 1 CAP CPMP.12HR PO SCH ×2 (08:55→21:06)
[2019-06-19] MEDS: ALLOPURINOL 100 MG TABLET PO SCH (08:55)
[2019-06-19] MEDS: ESCITALOPRAM OXALATE (10 MG) 10 MG TABLET PO SCH (08:55)
[2019-06-19] MEDS: DONEPEZIL 5 MG TABLET PO SCH (08:55)
[2019-06-19] MEDS: LOSARTAN POTASSIUM 50 MG TABLET PO SCH (09:00)
[2019-06-19] MEDS: hydrALAZINE HCL 50 MG TABLET PO SCH ×2 (09:00→16:01)
[2019-06-19] MEDS ORDERED: ALENDRONATE 70 MG TABLET PO SCH (09:00)
[2019-06-19] MEDS: NIFEdipine XL (30MG) 30 MG TAB PO SCH ×2 (09:00→18:21)
--- NOTE | 2019-06-19 09:00 | NUR ---
RN MS NOTES BP MEDS HELD, PT HAS PREVIOUS EPISODE OF HYPOTENSION, ANTICIPATING HEMODIALYSIS TODAY.
[2019-06-19] MEDS: ENSURE ENLIVE CHOC 237 ML CAN PO SCH (10:49)
[2019-06-19] MEDS ORDERED: NEUTRA PHOS 1 POWD.PACKET PO ONE (12:30)
--- NOTE | 2019-06-19 13:00 | NUR ---
RN MS NOTES PT IN BED, AWAKE, ALERT, NOT IN PAIN OR DISTRESS, SEEN AND EXAMINED BY DR. BARROSO, ORDERS GIVEN, NOTED AND CARRIED OUT, KEPT PT CLEAN, DRY AND COMFORTABLE, DIALYSIS ONGOING, TOLERATING WELL.
[2019-06-19] MEDS: EPOETIN ALFA (10,000 UNIT) 10,000 UNIT/ML VIAL SQ SCH (14:14)
[2019-06-19] MEDS: Magnesium 1GM/D5W 100ML PREMIX 100 ML IV SCH ×2 (15:54→18:56)
[2019-06-19 16:00] VITALS: BP 183/97
[2019-06-19 17:30] VITALS: BP 149/74
[2019-06-19] MEDS: SOD FERRIC GLUC 125 MG in IV NS 0.9% 100 ML IV SCH (17:50)
--- NOTE | 2019-06-19 19:01 | NUR ---
RN MS NOTES PT IN BED, RESTING, EASY TO AROUSE, ALERT AND ORIENTED, NOT IN DISTRESS, NOTED WITH LOOSE STOOLS, 3X DURING THE SHIFT, DR. BERNARD INFORMED, ORDERED STOOL C-DIFF TEST, SPECIMEN SENT TO LAB, PT DENIES ABDOMINAL PAIN, NO NAUSEA OR VOMITING, PERINEAL CARE PROVIDED NEEDED, GOOD SKIN CARE PROVIDED, PM MEDS GIVEN ORDERED, REPOSITIONED FOR COMFORT, ALL NEEDS ATTENDED.
--- NOTE | 2019-06-19 19:15 | NUR ---
MS RN NOTES RECEIVED ON BED SLEEPING,AROUSABLE TO VERBAL STIMULI,BREATHING NON LABORED,CAREGIVER AT BEDSIDE.WITH SALINE LOCK LEFT AC #18 INTACT AND PATENT.WITH RIGHT CHEST WALL PERMA CATH FOR HD ACCESS.KIDD CATH IN PLACE DRAINING PINKISH OUTPUT.HAD DIALYSIS TODAY,1 LITER OUT.WILL CONTINUE TO MONITOR STATUS.
[2019-06-19 20:00] VITALS: BP 178/74
--- NOTE | 2019-06-19 21:00 | NUR ---
MS RN NOTES DUE PO MEDS GIVEN,TAKEN WELL.
[2019-06-19] MEDS: CEFTRIAXONE 1 G in IV D5W 50 ML IV SCH (21:04)
[2019-06-19] MEDS: ATORVASTATIN 40 MG TABLET PO SCH (21:08)
--- NOTE | 2019-06-19 23:00 | NUR ---
MS RN NOTES NOTED PRODUCTIVE COUGH,UNABLE TO EXPECTORATE,ORAL SUCTION DONE.
--- NOTE | 2019-06-19 23:13 | NUR ---
MS CARTER NOTES RT AT BEDSIDE TO ADMINISTERED BREATHING SCHEDULE. Addendum: 06/20/19 at 0635 by FAVIO ROY RN RT AT BEDSIDE TO ADMINISTER BREATHING TREATMENT
[2019-06-20] VITALS: BP 141/62
[2019-06-20 06:34] LABS: CALCIUM, SERUM 8.2 mg/dL (8.5-10.1); CARBON DIOXIDE 29 mmol/L (21-32); CHLORIDE 107 mmol/L (98-107); CREATININE 1.9 mg/dL (0.6-1.3); GLUCOSE 79 mg/dL (74-106); POTASSIUM 3.5 mmol/L (3.5-5.1); SODIUM SERUM 141 mmol/L (136-145); UREA NITROGEN, BLOOD 21 mg/dL (7-18)
--- NOTE | 2019-06-20 06:35 | NUR ---
MS RN NOTES FAIRLY RESTED,ASSOCIATE PROGRAMMER ANALYST AT BEDSIDE.BREATHING TREATMENT EFFECTIVE.AFEBRILE.IN NO ACUTE DISTRESS.DNR/DNI STATUS .WILL ENDORSE TO DAY NURSE FOR MAXIMINO.
--- NOTE | 2019-06-20 07:30 | NUR ---
RN MS NOTES PT IN BED, ASLEEP, EASY TO AROUSE, ALERT AND ORIENTED, NO COMPLAINT OF PAIN, NOT IN DISTRESS, CALL LIGHT WITHIN REACH, CAREGIVER AT BEDSIDE, KEPT WARM AND COMFORTABLE IN BED, KIDD IN PLACE, DRAINING WELL WITH CLEAR YELLOW URINE.
[2019-06-20 08:00] VITALS: BP 130/64
[2019-06-20] MEDS: IPRATROPIUM NEB FS 0.5 MG/2.5 ML AMPUL.NEB IH SCH ×3 (08:31→23:29)
[2019-06-20] MEDS: DONEPEZIL 5 MG TABLET PO SCH (08:36)
[2019-06-20] MEDS: COLCHICINE 0.6 MG TABLET PO SCH ×2 (08:36→16:48)
[2019-06-20] MEDS: ESCITALOPRAM OXALATE (10 MG) 10 MG TABLET PO SCH (08:36)
[2019-06-20] MEDS: LACTOBACILLUS RHAMNOSUS GG 1 EACH CAP.SPRINK PO SCH ×2 (08:36→16:48)
[2019-06-20] MEDS: ALLOPURINOL 100 MG TABLET PO SCH (08:36)
[2019-06-20] MEDS: AGGRENOX(ASA/DIPYRIDAMOLE) 1 CAP CPMP.12HR PO SCH ×2 (08:36→21:12)
[2019-06-20] MEDS: ENSURE ENLIVE CHOC 237 ML CAN PO SCH (08:36)
[2019-06-20] MEDS: CALCIUM CARBONATE 500 MG TAB.CHEW PO SCH ×2 (08:36→16:48)
[2019-06-20] MEDS: hydrALAZINE HCL 50 MG TABLET PO SCH ×2 (08:36→16:49)
[2019-06-20] MEDS: NIFEdipine XL (30MG) 30 MG TAB PO SCH ×2 (09:00→16:49)
[2019-06-20] MEDS: LOSARTAN POTASSIUM 50 MG TABLET PO SCH (09:00)
--- NOTE | 2019-06-20 09:00 | NUR ---
HTN MEDS HELD, ANTICIPATING HEMODIALYSIS TODAY.
--- NOTE | 2019-06-20 09:35 | NUR ---
RN MS NOTES PT SEEN AND EXAMINED BY DR. BERNARD, PLAN OF CARE DISCUSSED WITH PT AND DAUGHTER AT BEDSIDE, VERBALIZED UNDERSTANDING.
[2019-06-20] MEDS: SOD FERRIC GLUC 125 MG in IV NS 0.9% 100 ML IV SCH (13:37)
[2019-06-20 16:00] VITALS: BP 129/64
--- NOTE | 2019-06-20 18:08 | NUR ---
RN MS NOTES PT IN BED, AWAKE, ALERT AND ORIENTED, NO COMPLAINT OF PAIN, NOT IN DISTRESS, CAREGIVER AT BEDSIDE, PM MEDS GIVEN, PERINEAL CARE PROVIDED NEEDED, GOOD SKIN CARE DONE, TURNED AND REPOSITIONED Q2 HOURS, KEPT WARM AND COMFORTABLE IN BED, F/C DRAINING WELL.
--- NOTE | 2019-06-20 19:20 | NUR ---
MS RN NOTES OB BED SLEEPING,AROUSABLE TO VERBAL STIMULI,KIDD CATH IN PLACE DRAINING YELLOWISH OUTPUT.PRODUCT SAFETY ASSOCIATE AT BEDSIDE.STILL WEAK,ASSIST WITH ADL'S.CALL LIGHT IN REACH.NEEDS ANTICIPATED.
[2019-06-20 20:00] VITALS: BP 130/62
--- NOTE | 2019-06-20 21:00 | NUR ---
MS RN NOTES DUE PO MEDS GIVEN,TAKEN WELL.NEGATIVE FOR ASPIRATION
[2019-06-20] MEDS: ATORVASTATIN 40 MG TABLET PO SCH (21:13)
[2019-06-20] MEDS: CEFTRIAXONE 1 G in IV D5W 50 ML IV SCH (21:15)
--- NOTE | 2019-06-21 06:05 | NUR ---
MS RN NOTES SLEEP WELL,WITH TEMPLATE CLERK AT BEDSIDE.NO COMPLAINTS THRU OUT SHIFT,NO EPISODE OF SOB.POSSIBLE D/C HOME WITH HOME HEALTH PT.IN NO ACUTE DISTRESS.WILL ENDORSE TO DAY NURSE FOR MAXIMINO.
[2019-06-21 07:24] LABS: BASOPHILS % (AUTO) 0.3 % (0.0-2.0); EOSINOPHILS % (AUTO) 1.8 % (0.0-6.0); HEMATOCRIT 26 % (39-51); HEMOGLOBIN 8.7 g/dL (13.5-17.5); LYMPHOCYTES # (AUTO) 0.9 /CMM (0.8-4.8); LYMPHOCYTES % (AUTO) 21.7 % (20.0-44.0); MEAN CORPUSCULAR HGB CONC 34 g/dl (31.0-36.0); MEAN CORPUSCULAR VOLUME 101 fL (80-96); MONOCYTES # (AUTO) 0.4 /CMM (0.1-1.30); MONOCYTES % (AUTO) 8.8 % (2.0-12.0); NEUTROPHILS # (AUTO) 2.8 /CMM (1.8-8.9); NEUTROPHILS % (AUTO) 67.4 % (43.0-81.0); PLATELET COUNT (AUTO) 84 /CMM (150-450); RED BLOOD CELL COUNT(AUTO) 2.56 MIL/uL (4.5-6.0); WHITE BLOOD COUNT (AUTO) 4.1 K/uL (4.3-11.0)
[2019-06-21] MEDS: IPRATROPIUM NEB FS 0.5 MG/2.5 ML AMPUL.NEB IH SCH ×2 (07:26→16:29)
--- NOTE | 2019-06-21 07:30 | NUR ---
RN OPENING NOTES RECEIVED PATIENT IN BED, ASLEEP, EASY TO AROUSE, ALERT AND ORIENTED, NO COMPLAINT OF PAIN, NOT IN DISTRESS, CALL LIGHT WITHIN REACH, CAREGIVER AT BEDSIDE, KEPT WARM AND COMFORTABLE IN BED, KIDD IN PLACE, DRAINING WELL WITH CLEAR YELLOW URINE.
[2019-06-21 07:40] LABS: CALCIUM, SERUM 8.4 mg/dL (8.5-10.1); CARBON DIOXIDE 28 mmol/L (21-32); CHLORIDE 111 mmol/L (98-107); CREATININE 2.5 mg/dL (0.6-1.3); GLUCOSE 76 mg/dL (74-106); PHOSPHORUS 1.3 mg/dL (2.5-4.9); POTASSIUM 3.5 mmol/L (3.5-5.1); SODIUM SERUM 147 mmol/L (136-145); UREA NITROGEN, BLOOD 25 mg/dL (7-18)
[2019-06-21 08:00] VITALS: BP 139/70
[2019-06-21] MEDS: ALLOPURINOL 100 MG TABLET PO SCH (09:01)
[2019-06-21] MEDS: DONEPEZIL 5 MG TABLET PO SCH (09:03)
[2019-06-21] MEDS: ESCITALOPRAM OXALATE (10 MG) 10 MG TABLET PO SCH (09:03)
[2019-06-21] MEDS: LOSARTAN POTASSIUM 50 MG TABLET PO SCH (09:03)
[2019-06-21] MEDS: LACTOBACILLUS RHAMNOSUS GG 1 EACH CAP.SPRINK PO SCH ×3 (09:04→17:19)
[2019-06-21] MEDS: COLCHICINE 0.6 MG TABLET PO SCH ×2 (09:04→16:44)
[2019-06-21] MEDS: CALCIUM CARBONATE 500 MG TAB.CHEW PO SCH ×2 (09:05→16:44)
[2019-06-21] MEDS: NIFEdipine XL (30MG) 30 MG TAB PO SCH ×2 (09:05→16:45)
[2019-06-21] MEDS: hydrALAZINE HCL 50 MG TABLET PO SCH ×2 (09:05→16:45)
[2019-06-21] MEDS: AGGRENOX(ASA/DIPYRIDAMOLE) 1 CAP CPMP.12HR PO SCH ×2 (09:06→21:56)
[2019-06-21] MEDS: ENSURE ENLIVE CHOC 237 ML CAN PO SCH (09:07)
[2019-06-21] MEDS ORDERED: K PHOS NEUTRAL 250 MG TABLET PO ONE (11:00)
[2019-06-21] MEDS ORDERED: DIPHENOXYLATE HCL/ATROP SULF 1 UDTAB TABLET PO PRN (12:00)
--- NOTE | 2019-06-21 12:00 | NUR ---
rn notes patient has loose stools. notified dr powell. new orders noted and will carry out.
[2019-06-21] MEDS ORDERED: ALBUMIN 25% 25 GM in PREMIX 1 EA IV PRN (12:30)
--- NOTE | 2019-06-21 13:13 | NUR ---
RN NOTES SPOKE WITH [facility],PHARMACIST, HOLD 500MG VANCO POST HD. GIVE 1GM VANCOMYCIN SCHEDULED
--- NOTE | 2019-06-21 14:10 | NUR ---
rn notes patient c-diff hunter colected 2 days ago. microbiology for cdiff result still pending. administered lomotil 2 tabs PO as ordered.
[2019-06-21] MEDS ORDERED: VANCOMYCIN 1 GM in IV NS 0.9% 250 ML IV ONE (15:00)
[2019-06-21] MEDS: SOD FERRIC GLUC 125 MG in IV NS 0.9% 100 ML IV SCH (15:17)
[2019-06-21 16:00] VITALS: BP 125/57
--- NOTE | 2019-06-21 19:30 | NUR ---
RN CLOSING NOTES PATIENT IN STABLE CONDITION. ALL NEEDS ATTENDED AND PROVIDED. TURNED AND REPOSITIONED PATIENT EVERY 2 HRS NEEDED. CAREGIVER AT BEDSDIE. KEPT PATIENT SAFE AND COMFPRTABLE. BED IN LOW/LOCKED PSOITION, SIDERAISL UPX2, CALL LIGHT IN REACH. ENDORSED TO NIGHT RN FOR MAXIMINO.
--- NOTE | 2019-06-21 19:31 | NUR ---
RN PM OPENING NOTES BEDSIDE REPORT RECIEVED FROM JOAN CARTER AND KAHLIL. CAREGIVER AT [facility]. REVIEWED POC. PATIENT TO BE DISCHARGED TOMORROW TO HOME APPOINTMENT FOR DIALYSIS HAS BEEN MADE WITH CHAIR TIME AND HOSPITAL BED EQUIPMENT IS TO BE ARRANGED FOR HOME USE TOMORROW PER REPORT. BED IN LOW/LOCKED PSOITION, SIDERAISL UPX2, CALL LIGHT IN REACH. PATIENT IN NO APPARENT DISTRESS. WILL CONT TO MONITOR.
[2019-06-21 20:00] VITALS: BP 134/60
[2019-06-21] MEDS ORDERED: HEPARIN SODIUM, PORCINE 5000 UNITS/1 ML VIAL SQ SCH (21:00)
[2019-06-21] MEDS: ATORVASTATIN 40 MG TABLET PO SCH (21:56)
[2019-06-21] MEDS: CEFTRIAXONE 1 G in IV D5W 50 ML IV SCH (21:57)
[2019-06-22] MEDS ORDERED: VANCOMYCIN 500 MG in IV D5W 100 ML IV PRN (06:00)
--- NOTE | 2019-06-22 06:30 | NUR ---
RN PM CLOSING NOTE CAREGIVER STILL PRESENT AT THE BEDSDIE. PLAN IS TO HAVE PATIENT DISCHARGED TODAY TO HOME AFTER DELIVERY OF HOSPITAL BED EQUIPMENT BED IN LOW/LOCKED PSOITION, SIDERAISL UPX2, CALL LIGHT IN REACH. PATIENT IN NO APPARENT DISTRESS. PATIENT DENIES PAIN. BREATHING IS EVEN AND IN NO APPARENT DISTRESS. ON 2LNC.
[2019-06-22 07:21] LABS: BASOPHILS % (AUTO) 0.1 % (0.0-2.0); EOSINOPHILS % (AUTO) 1.8 % (0.0-6.0); HEMATOCRIT 27 % (39-51); HEMOGLOBIN 8.8 g/dL (13.5-17.5); LYMPHOCYTES # (AUTO) 0.6 /CMM (0.8-4.8); LYMPHOCYTES % (AUTO) 12.2 % (20.0-44.0); MEAN CORPUSCULAR HGB CONC 33 g/dl (31.0-36.0); MEAN CORPUSCULAR VOLUME 101 fL (80-96); MONOCYTES # (AUTO) 0.3 /CMM (0.1-1.30); MONOCYTES % (AUTO) 6.3 % (2.0-12.0); NEUTROPHILS # (AUTO) 4.1 /CMM (1.8-8.9); NEUTROPHILS % (AUTO) 79.6 % (43.0-81.0); RED BLOOD CELL COUNT(AUTO) 2.62 MIL/uL (4.5-6.0); WHITE BLOOD COUNT (AUTO) 5.1 K/uL (4.3-11.0)
[2019-06-22 07:23] LABS: PLATELET COUNT (AUTO) 61 /CMM (150-450)
[2019-06-22 07:34] LABS: CALCIUM, SERUM 8.3 mg/dL (8.5-10.1); CARBON DIOXIDE 28 mmol/L (21-32); CHLORIDE 105 mmol/L (98-107); CREATININE 2.2 mg/dL (0.6-1.3); GLUCOSE 81 mg/dL (74-106); POTASSIUM 3.1 mmol/L (3.5-5.1); SODIUM SERUM 142 mmol/L (136-145); UREA NITROGEN, BLOOD 18 mg/dL (7-18)
--- NOTE | 2019-06-22 07:46 | NUR ---
MS/RN Patient received Patient received from restaurant shift supervisor. A/O X3, no complaints of any pain or discomfort at this time. live in caregiver at bedside, safety maintained, call light within reach. Will continue to monitor and ensure safety.
[2019-06-22] MEDS: IPRATROPIUM NEB FS 0.5 MG/2.5 ML AMPUL.NEB IH SCH ×2 (07:50→17:25)
[2019-06-22 07:57] VITALS: BP 127/49
[2019-06-22 08:00] VITALS: BP 127/49
[2019-06-22] MEDS: CALCIUM CARBONATE 500 MG TAB.CHEW PO SCH ×2 (08:10→17:40)
[2019-06-22] MEDS: ESCITALOPRAM OXALATE (10 MG) 10 MG TABLET PO SCH (08:10)
[2019-06-22] MEDS: LACTOBACILLUS RHAMNOSUS GG 1 EACH CAP.SPRINK PO SCH ×2 (08:10→17:40)
[2019-06-22] MEDS: COLCHICINE 0.6 MG TABLET PO SCH ×2 (08:10→17:40)
[2019-06-22] MEDS: ALLOPURINOL 100 MG TABLET PO SCH (08:11)
[2019-06-22] MEDS: DONEPEZIL 5 MG TABLET PO SCH (08:11)
[2019-06-22] MEDS: AGGRENOX(ASA/DIPYRIDAMOLE) 1 CAP CPMP.12HR PO SCH (08:17)
[2019-06-22] MEDS: NIFEdipine XL (30MG) 30 MG TAB PO SCH ×2 (08:20→17:41)
[2019-06-22] MEDS: LOSARTAN POTASSIUM 50 MG TABLET PO SCH (08:20)
[2019-06-22] MEDS: ENSURE ENLIVE CHOC 237 ML CAN PO SCH (08:20)
[2019-06-22] MEDS: hydrALAZINE HCL 50 MG TABLET PO SCH ×2 (08:20→17:40)
--- NOTE | 2019-06-22 09:15 | NUR ---
MS/RN Medications All morning medications administered as ordered.
--- NOTE | 2019-06-22 13:30 | NUR ---
MS/RN S/B Avelino Brunson DNP Seen by DNP - patient to be discharged later today once hospital bed has been delivered to home.
[2019-06-22] MEDS: SOD FERRIC GLUC 125 MG in IV NS 0.9% 100 ML IV SCH (14:00)
[2019-06-22 16:00] VITALS: BP 137/64
--- NOTE | 2019-06-22 16:15 | NUR ---
MS/RN Spangler Per Avelino Brunson, spangler catheter may be left in place upon discharge.
[2019-06-22 17:41] VITALS: BP 137/64
--- NOTE | 2019-06-22 18:54 | NUR ---
MS/beauty sales consultant Patient discharged to home in stable condition. Heplock and name bands removed. Discharge instructions given to both son and home care specialist, both stating an understanding. Educated as to medications and as to what still needed to be taken tonight. Made aware of new HDX schedule (Friday//Friday) at 08:30. Name of center provided with address and telephone number. HDX catheter card given to home care specialist. Instructed to keep in safe place incase three is any problems. Escorted to main lobby by IBRAHIMA.
== END 2019-06-22 18:55 | disposition home health service (06) | DRG 673 ==
LOC: ER 16:36 → TELE 20:07 → MED 06-16 08:56
PROVIDERS: ADMIT Nurse Practitioner Acute Care; ATTEND Hospitalist
PROC: 0JH63XZ Insertion of Tunneled Vascular Access Device into Chest Subcutaneous Tissue and Fascia, Percutaneous Approach (ICD-10-PCS; principal; 2019-06-18)
PROC: 02HV33Z Insertion of Infusion Device into Superior Vena Cava, Percutaneous Approach (ICD-10-PCS; 2019-06-18)
PROC: B518YZA Fluoroscopy of Superior Vena Cava using Other Contrast, Guidance (ICD-10-PCS; 2019-06-18)
PROC: 5A1D70Z Performance of Urinary Filtration, Intermittent, Less than 6 Hours Per Day (ICD-10-PCS; 2019-06-18)
DX: N17.9 Acute kidney failure, unspecified (principal); J15.9 Unspecified bacterial pneumonia; I21.A1 Myocardial infarction type 2; E87.1 Hypo-osmolality and hyponatremia; I50.32 Chronic diastolic (congestive) heart failure; G93.49 Other encephalopathy; N39.0 Urinary tract infection, site not specified; I13.2 Hypertensive heart and chronic kidney disease with heart failure and with stage 5 chronic kidney disease, or end stage renal disease; N18.6 End stage renal disease; D63.1 Anemia in chronic kidney disease; D69.6 Thrombocytopenia, unspecified; E78.5 Hyperlipidemia, unspecified; Z86.73 Personal history of transient ischemic attack (TIA), and cerebral infarction without residual deficits; M19.90 Unspecified osteoarthritis, unspecified site; M81.0 Age-related osteoporosis without current pathological fracture; R40.2142 Coma scale, eyes open, spontaneous, at arrival to emergency department; R40.2242 Coma scale, best verbal response, confused conversation, at arrival to emergency department; R40.2362 Coma scale, best motor response, obeys commands, at arrival to emergency department; D75.89 Other specified diseases of blood and blood-forming organs; E83.9 Disorder of mineral metabolism, unspecified; G72.9 Myopathy, unspecified; N40.1 Benign prostatic hyperplasia with lower urinary tract symptoms; Z96.653 Presence of artificial knee joint, bilateral; N28.1 Cyst of kidney, acquired; Z90.5 Acquired absence of kidney
CPT/HCPCS: 36415; 70450-TC; 71045-TC; 76770-TC; 80048-TC; 80053-TC; 80061-TC; 80076-TC; 80202-TC; 81000-TC; 82550-TC; 82570-TC; 83540-TC; 83605-TC; 83735-TC; 83970; 84100-TC; 84155; 84155-TC; 84165; 84300-TC; 84484-TC; 85025-TC; 85730-TC; 86704; 86705; 86706; 86803; 87040-TC; 87081-TC; 87086-TC; 87340; 90935-TC; 92521; 92526; 93307-TC; 94799-TC; 97116-TC; 97530-TC; A4216; A6403; G0378; J0690; J0696; J0885; J1644; J2543; J2704; J2916; J3370; J3475; J3490; J7030; J7040; J7050; J7060; P9047

== ENCOUNTER 2019-08-07 20:59 | Inpatient (IN) | payer MEDICARE ==
[~2019-08-07] VITALS: Ht 157.5 cm; Wt 46.3 kg
[~2019-08-07 20:59] MED LIST: ALEN70TA6 PO; ALLO300T2 PO; ASPI1CPM PO; ATOR40TA PO; BUME1TAB8 PO; CAL1TABL PO; CALC-494 PO; COLC0.6C3 PO; DONE5TAB34 PO; ESCI10TA PO; HYDR-4077 PO; IPRA0.2S49 IH; LOSA100T31 PO; NIFE-57 PO; NITR0.4T48 SL
[2019-08-07 21:30] LABS: BASOPHILS % (AUTO) 0.2 % (0.0-2.0); EOSINOPHILS % (AUTO) 0.8 % (0.0-6.0); HEMATOCRIT 36 % (39-51); HEMOGLOBIN 11.6 g/dL (13.5-17.5); LYMPHOCYTES % (AUTO) 13.2 % (20.0-44.0); MEAN CORPUSCULAR HGB CONC 33 g/dl (31.0-36.0); MEAN CORPUSCULAR VOLUME 103 fL (80-96); MONOCYTES # (AUTO) 0.3 /CMM (0.1-1.30); MONOCYTES % (AUTO) 4.3 % (2.0-12.0); NEUTROPHILS # (AUTO) 6.2 /CMM (1.8-8.9); NEUTROPHILS % (AUTO) 81.5 % (43.0-81.0); PLATELET COUNT (AUTO) 80 /CMM (150-450); RED BLOOD CELL COUNT(AUTO) 3.47 MIL/uL (4.5-6.0); WHITE BLOOD COUNT (AUTO) 7.6 K/uL (4.3-11.0)
--- NOTE | 2019-08-07 21:32 | NUR ---
[id number]. C/O "HAVING SOB, +VOMIT" AOX2. RESPONSIVE TO VERBAL. VSS. DENIES CP, DIZZINESS, WEAKNESS @ THIS TIME. PT SEEN & EVAL'D BY DR. APARICIO. PLACED ON SLPS. WILL CONT TO MONITOR. FAMILY @ BS.
[2019-08-07] MEDS ORDERED: ONDANSETRON HCL/PF 4 MG/2 ML VIAL ONE (21:37)
[2019-08-07 21:39] LABS: CALCIUM, SERUM 9.6 mg/dL (8.5-10.1); CARBON DIOXIDE 26 mmol/L (21-32); CHLORIDE 102 mmol/L (98-107); CREATININE 2.3 mg/dL (0.6-1.3); GLUCOSE 173 mg/dL (74-106); POTASSIUM 4.7 mmol/L (3.5-5.1); SODIUM SERUM 138 mmol/L (136-145); UREA NITROGEN, BLOOD 49 mg/dL (7-18)
[2019-08-07 21:52] LABS: ALANINE AMINOTRANSFERASE 50 U/L (12-78); ALBUMIN 3.4 g/dL (3.4-5.0); ALKALINE PHOSPHATASE 99 U/L (46-116); ASPARTATE AMINOTRANSFERASE 57 U/L (15-37); B-TYPE NATRIURETIC PEPTIDE 4337 PG/ML (0-125); BILIRUBIN,DIRECT 0.3 mg/dL (0.0-0.2); BILIRUBIN,TOTAL 1.2 mg/dL (0.2-1.0); TOTAL PROTEIN, SERUM 6.9 g/dL (6.4-8.2)
[2019-08-07] MEDS ORDERED: ONDANSETRON HCL/PF - ER 4 MG/2 ML VIAL IV ONE (22:00)
[2019-08-07 22:23] LABS: EOSINOPHILS % (MANUAL) 1 % (0-4); LYMPHOCYTES % (MANUAL) 16 % (16-48); MONOCYTES % (MANUAL) 3 % (0-11.0); NEUTROPHILS % (MANUAL) 80 (42-76)
--- NOTE | 2019-08-07 22:52 | NUR ---
CALLED [facility], PAGED JAIME
[2019-08-07] MEDS ORDERED: ASPIRIN 325 MG TABLET ONE (22:57)
[2019-08-07] MEDS ORDERED: FUROSEMIDE 20 MG/2 ML VIAL IV ONE (23:00)
[2019-08-07] MEDS ORDERED: ASPIRIN 325 MG TABLET PO ONE (23:00)
[2019-08-07] MEDS ORDERED: FUROSEMIDE 20 MG/2 ML VIAL ONE (23:08)
--- NOTE | 2019-08-07 23:23 | NUR ---
REPORT GIVEN TO RAUL DRAKE FOR MAXIMINO
--- NOTE | 2019-08-07 23:45 | NUR ---
88 Years old male patient admitted to Tele unit with the DX of N-Stemi CHF, SOB. Patient arrived via [place], A/o x3, in no acute distress, breathing even and unlabored, No SOB noted, Patient on O2 @ 2LPM via NC, saturating 97%, Patient denies any pain or discomfort at this time, HOB elevated, Left AC 18 gauge IV site with no S/S on infection, infiltration, Body assessment done per protocol, unit orientation provided to patient and caregiver at bed side, Call light within reach, safety maintained, bed at the lowest locked position, Will continue to monitor patient as per plan of care.
[2019-08-07 23:55] VITALS: BP 138/54
[2019-08-08] MEDS ORDERED: Z GUARD REMEDY 2 OZ OINT TP PRN
[2019-08-08] MEDS ORDERED: NITROGLYCERIN 0.4 MG/TAB BOTTLE SL SCH
[2019-08-08] MEDS ORDERED: ACETAMINOPHEN 325 MG TABLET PO PRN
[2019-08-08] MEDS ORDERED: ONDANSETRON HCL/PF 4 MG/2 ML VIAL IVP PRN
[2019-08-08] MEDS ORDERED: ZOLPIDEM TARTRATE 5 MG TABLET PO PRN
[2019-08-08] MEDS ORDERED: HYDROCODONE/APAP 5/325MG 1 EACH TABLET PO PRN
[2019-08-08] MEDS ORDERED: MAG HYDROX/AL HYDROX/SIMETH 30 ML UDC PO PRN
[2019-08-08] MEDS ORDERED: MAGNESIUM HYDROXIDE 30 ML UDC PO PRN
[2019-08-08] MEDS ORDERED: METRONIDAZOLE 500MG/ NS 100ML 100 ML IV ONE ×2 (00:55→05:42)
[2019-08-08] MEDS ORDERED: CEFTRIAXONE 1 G VIAL ONE (00:56)
[2019-08-08] MEDS: METRONIDAZOLE 500MG/ NS 100ML 500 MG in PREMIX 1 EA IV SCH ×5 (01:04→23:22)
[2019-08-08] MEDS: CEFTRIAXONE 1 G in IV D5W 50 ML IV SCH (01:04)
[2019-08-08 04:00] VITALS: BP 140/71
--- NOTE | 2019-08-08 06:41 | NUR ---
Tele/RN notes Patient in bed, sleeping comfortably at this time, easily arousable, in no acute distress, breathing even and unlabored, no SOB noted, Ed any pain, kept clean and dry, Due meds given as ordered, tolerated well, denies nausea/vomiting, Safety maintained, bed at the lowest locked position. Call light within reach, caregiver at bed side, Will endorse to AM shift nurse for MAXIMINO.
[2019-08-08 06:50] LABS: BASOPHILS % (AUTO) 0.2 % (0.0-2.0); HEMATOCRIT 30 % (39-51); HEMOGLOBIN 9.8 g/dL (13.5-17.5); LYMPHOCYTES # (AUTO) 1.3 /CMM (0.8-4.8); LYMPHOCYTES % (AUTO) 25.5 % (20.0-44.0); MEAN CORPUSCULAR HGB CONC 33 g/dl (31.0-36.0); MEAN CORPUSCULAR VOLUME 101 fL (80-96); MONOCYTES # (AUTO) 0.4 /CMM (0.1-1.30); NEUTROPHILS # (AUTO) 3.2 /CMM (1.8-8.9); NEUTROPHILS % (AUTO) 65.3 % (43.0-81.0); PLATELET COUNT (AUTO) 82 /CMM (150-450); RED BLOOD CELL COUNT(AUTO) 2.91 MIL/uL (4.5-6.0)
[2019-08-08 07:03] LABS: ALANINE AMINOTRANSFERASE 40 U/L (12-78); ALBUMIN 2.7 g/dL (3.4-5.0); ALKALINE PHOSPHATASE 85 U/L (46-116); ASPARTATE AMINOTRANSFERASE 42 U/L (15-37); BILIRUBIN,TOTAL 0.6 mg/dL (0.2-1.0); CALCIUM, SERUM 8.6 mg/dL (8.5-10.1); CARBON DIOXIDE 29 mmol/L (21-32); CHLORIDE 105 mmol/L (98-107); CREATININE 2.3 mg/dL (0.6-1.3); GLUCOSE 84 mg/dL (74-106); PHOSPHORUS 4.9 mg/dL (2.5-4.9); SODIUM SERUM 140 mmol/L (136-145); TOTAL PROTEIN, SERUM 5.6 g/dL (6.4-8.2); UREA NITROGEN, BLOOD 57 mg/dL (7-18)
[2019-08-08 07:06] LABS: CHOLESTEROL 100 mg/dL (<200); HDL CHOLESTEROL 48 mg/dL (40-60); LDL 41 mg/dL (0-99); TRIGLYCERIDES 53 mg/dL (30-150)
[2019-08-08 07:23] LABS: FERRITIN 49 ng/mL (8-388)
[2019-08-08 07:44] LABS: IRON, SERUM 36 ug/dl (50-175); TOTAL IRON BINDING CAPACITY 247 ug/dl (250-450)
[2019-08-08 07:45] LABS: EOSINOPHILS % (MANUAL) 1 % (0-4); LYMPHOCYTES % (MANUAL) 23 % (16-48); MONOCYTES % (MANUAL) 8 % (0-11.0); NEUTROPHILS % (MANUAL) 68 (42-76)
[2019-08-08 08:00] VITALS: BP 158/69
--- NOTE | 2019-08-08 08:00 | NUR ---
TELE1/RN AM SHIFT INITIAL NOTES RECEIVED PT ASLEEP IN BED, PT A/O X 3, DENIES CHEST PAIN, NO SOB NOTED. ON 2L O2 VIA N/C SATURATING @ 98%, RESPIRATIONS EVEN & UNLABORED, LUNG SOUNDS CLEAR. ON TELE WITH SINUS MILES, HR 58. IV SITE ON TKO, PATENT WITH NO S/S OF INFECTION. PLACED CONDOM CATH ON PT, NOTED WITH YELLOW URINE OUTPUT. PT ON NPO STATUS AT THIS TIME. PT IS COMFORTABLE, PRIVATE CAREGIVER AT BEDSIDE. SCHEDULED MEDS TO BE GIVEN. CL WITHIN REACHED AND SAFETY MAINTAINED. ON GOING MONITORING.
[2019-08-08] MEDS ORDERED: COLCHICINE 0.6 MG TABLET PO SCH ×2 (08:30→09:00)
[2019-08-08] MEDS: BUMETANIDE (1 MG) 1 MG TABLET PO SCH ×2 (08:56→17:01)
[2019-08-08] MEDS: DONEPEZIL 5 MG TABLET PO SCH (08:57)
[2019-08-08] MEDS: ALLOPURINOL 100 MG TABLET PO SCH (08:57)
[2019-08-08] MEDS: ESCITALOPRAM OXALATE (10 MG) 10 MG TABLET PO SCH (08:57)
[2019-08-08] MEDS: CALCIUM CARBONATE 500 MG TAB.CHEW PO SCH ×2 (08:57→17:01)
[2019-08-08] MEDS: hydrALAZINE HCL 50 MG TABLET PO SCH ×2 (08:58→17:01)
[2019-08-08] MEDS: IPRATROPIUM NEB FS 0.5 MG/2.5 ML AMPUL.NEB IH SCH ×4 (09:00→19:15)
--- NOTE | 2019-08-08 10:00 | NUR ---
TELE1/RN ROUNDS - DRs. ARIAS & LEVI PT SEEN & EXAMINED BY DRs. ARIAS & LEVI. RECEIVED VERBAL ORDER TO RESUME DIET (STANDARD SOFT RENAL) ORDER NOTED AND CARRIED OUT. MONITORING CONTINUED.
[2019-08-08] MEDS ORDERED: NIFEdipine (10MG) 10 MG CAPSULE PO SCH ×2 (11:00→17:00)
[2019-08-08 12:00] VITALS: BP 166/77
[2019-08-08 16:00] VITALS: BP 162/80
--- NOTE | 2019-08-08 17:00 | NUR ---
MS1/RN AFTERNOON ROUNDS PM CARE PROVIDED, NO CHANGE OF CONDITION.
--- NOTE | 2019-08-08 19:33 | NUR ---
MS RN NOTES RECEIVED PT ON BED. A/O X 3. CAREGIVER AT BEDSIDE. ON ROOM AIR NO RESPIRATORY DISTRESS NOTED. ON CONDOM CATH DRAINING YELLOW URINE. IV ACCESS ON LAC G18 PATENT AND INTACT. HD ACCES ON RIGHT CHEST WALL NO BLEEDING NOTED. HEAD OF BED ELEVATED. SIDE RAILS UP. BED IN LOW AND LOCKED POSITION. BED ALARM ON. WILL MONITOR PT CLOSELY.
--- NOTE | 2019-08-08 19:37 | NUR ---
MS1/RN AM SHIFT INITIAL NOTES ALL NEEDS MET. NO ACUTE CHANGE OF CONDITION NOTED DURING THE SHIFT. PT ENDORSED TO PM NURSE TO CONTINUE CARE. CL WITHIN REACHED AND SAFETY MAINTAINED.
[2019-08-08 20:00] VITALS: BP 117/59
[2019-08-08] MEDS: ATORVASTATIN 40 MG TABLET PO SCH (21:24)
[2019-08-08] MEDS: AGGRENOX(ASA/DIPYRIDAMOLE) 1 CAP CPMP.12HR PO SCH (21:24)
--- NOTE | 2019-08-08 23:17 | NUR ---
MS RN NOTES UNABLE TO RETAKE SACRAL WOUND PICTURE. PT WANTS TO SLEEP. EXPLAINED RISK AND BENEFITS, PT STILL REFUSED. WITNESS BY VICE PRESIDENT GLOBAL ADVERTISING SALES.
[2019-08-09] MEDS: CEFTRIAXONE 1 G in IV D5W 50 ML IV SCH (00:13)
[2019-08-09 04:00] VITALS: BP 136/79
[2019-08-09] MEDS: METRONIDAZOLE 500MG/ NS 100ML 500 MG in PREMIX 1 EA IV SCH ×4 (05:04→23:07)
--- NOTE | 2019-08-09 07:05 | NUR ---
MS RN OPENING NOTE: RECIEVED PATIENT IN BED. AWAKE, ALERT AND ORIENTED X4. NEURO: ON CONT. O2 VIA NC @2LPM TOLERATING WELL, NO SOB NOTED. NOT IN DISTRESS. WITH CONDOM CATHETER AND DRAINING YELLOW URINE. WITH IV SITE ON LEFT HAND G18, LEFT AC G22 AND RIGHT CHEST WALL HD CATHETER SITES CLEAN, DRY, SECURE AND PATENT. NO PAIN NOTED NOR REPORTED AT THIS TIME. CALL LIGHT IN REACH, SIDE RAILS UP, BED LOCKED, LOW AND AT SEMI-BURNETT'S POSITION. WILL CONTINUE TO MONITOR.
--- NOTE | 2019-08-09 07:15 | NUR ---
MS RN NOTES NO ACUTE CHANGES NOTED DURING THE SHIFT, PROVIDED COMFORT AND SAFETY. WILL ENDORSE TO THE AM NURSE FOR CONTINUITY OF CARE.
[2019-08-09 08:00] VITALS: BP 161/73
[2019-08-09] MEDS ORDERED: ALENDRONATE 70 MG TABLET PO SCH (09:00)
--- NOTE | 2019-08-09 09:42 | NUR ---
WOUND CARE CONSULT: PT PRESENTS WITH SACRAL SCARRING AND RT EAR DRY LESION, PRESENT ON ADMISSION. PT STATES HAS HAD RT EAR LESION FOR A LONG TIME AND STATES HAS HAD A SACRAL WOUND PREVIOUSLY. RECOMMENDATIONS MADE FOR SKIN PROTECTION. DISCUSSED WITH NURSING STAFF. DEFER TO MD FOR RT EAR DRY LESION. WILL SEE PRN. CURRENT FLORINDA SCORE IS 14. MD IN AGREEMENT WITH PLAN OF CARE. Addendum: 08/09/19 at 0944 by ZAK PAT WNDNU Amended: Links added.
[2019-08-09] MEDS: IPRATROPIUM NEB FS 0.5 MG/2.5 ML AMPUL.NEB IH SCH ×3 (10:13→17:23)
[2019-08-09] MEDS: ESCITALOPRAM OXALATE (10 MG) 10 MG TABLET PO SCH (10:23)
[2019-08-09] MEDS: hydrALAZINE HCL 50 MG TABLET PO SCH ×2 (10:23→16:30)
[2019-08-09] MEDS: BUMETANIDE (1 MG) 1 MG TABLET PO SCH ×2 (10:23→16:30)
[2019-08-09] MEDS: DONEPEZIL 5 MG TABLET PO SCH (10:23)
[2019-08-09] MEDS: CALCIUM CARBONATE 500 MG TAB.CHEW PO SCH ×2 (10:24→16:30)
[2019-08-09] MEDS: ALLOPURINOL 100 MG TABLET PO SCH (10:24)
[2019-08-09] MEDS: AGGRENOX(ASA/DIPYRIDAMOLE) 1 CAP CPMP.12HR PO SCH ×2 (10:24→20:26)
[2019-08-09 12:00] VITALS: BP 100/52
--- NOTE | 2019-08-09 15:30 | NUR ---
MS RN NOTE: CONFIRMED WITH DR. NORA HEADLEY THAT SITE FOR THORACENTESIS WILL BE ON THE LEFT AND THAT NO SPECIMEN WOULD BE NEEDED TO BE SENT TO THE LAB FOR EVALUATION. CONDOM CATHETER DISCONTINUED PER MD ORDER.
--- NOTE | 2019-08-09 15:50 | NUR ---
MS RN NOTE: CONSENT OBTAINED FROM PATIENT FOR ULTRASOUND GUIDED THORACENTESIS, PATIENT WAS ABLE TO SIGN FORM AND WITNESSED BY CAREGIVER AT BEDSIDE AND RAUL JAMISON.
[2019-08-09 16:00] VITALS: BP 100/52
--- NOTE | 2019-08-09 19:02 | NUR ---
MS RN CLOSING NOTE: RPATIENT IN BED. AWAKE, ALERT AND ORIENTED X4. WITH CAREGIVER ON BEDSIDE. ON CONT. O2 VIA NC @2LPM TOLERATING WELL, NO SOB NOTED. NOT IN DISTRESS. WITH IV SITE ON LEFT HAND G18, LEFT AC G22 AND RIGHT CHEST WALL HD CATHETER SITES CLEAN, DRY, SECURE AND PATENT. NO PAIN NOTED NOR REPORTED AT THIS TIME. HD CATHETER ON RIGHT CHEST WALL CLEAN, DRY AND SECURE. 2000 ML. US GUIDED THORACENTESIS DUE TO BE DONE LATER TONIGHT. CALL LIGHT IN REACH, SIDE RAILS UP, BED LOCKED, LOW AND AT SEMI-BURNETT'S POSITION. ENDORSED TO NIGHT NURSE FOR MAXIMINO.
--- NOTE | 2019-08-09 19:47 | NUR ---
MS RN NOTES RECEIVED PT ON BED. A/O X 3. CAREGIVER AT BEDSIDE. ON NASAL CANNULA 1LPM NO RESPIRATORY DISTRESS NOTED. IV ACCESS ON LAC G 18 AND LEFT HAND G 22 PATENT AND INTACT. HEAD OF BED ELEVATED. SIDE RAILS UP. CALL LIGHT WITHIN REACH. BED IN LOW AND LOCKED POSITION. WILL MONITOR PT CLOSELY.
--- NOTE | 2019-08-09 19:48 | NUR ---
MS RN NOTES SPOKE TO RADIOLOGY ALDAIR. PER NAOMIE THORACENTESIS WILL BE DONE IN AM.
[2019-08-09 20:00] VITALS: BP 152/76
[2019-08-09] MEDS: ATORVASTATIN 40 MG TABLET PO SCH (20:26)
--- NOTE | 2019-08-09 20:31 | NUR ---
MS RN NOTES PT TEMP 101.O, TYLENOL GIVEN PRN AND COOLING MEASURES GIVEN.
--- NOTE | 2019-08-09 20:32 | NUR ---
MS RN NOTES HOLDING AGGRENOX, FOR THORACENTESIS IN AM. CHARGE NURSE INFORMED.
[2019-08-10] VITALS (7 sets, daily range): BP systolic 116–175; BP diastolic 62–81
--- NOTE | 2019-08-10 01:00 | NUR ---
rn ms notes received patient from irene gray for continuity of care, patient in bed sleeping easily arousable respirations even and unlabored with equal rise and fall of chest, iv site to left ac and left hand intact and patent, no redness,no infiltration , rcw hd cath dressing is clean dry and intact, respirations even and unlabored with equal rise and fall of chest, safety precautions rendered, call light kept within reach, remains comfortable at this time will continue to monitor and attend to needs.
[2019-08-10] MEDS: CEFTRIAXONE 1 G in IV D5W 50 ML IV SCH (01:18)
--- NOTE | 2019-08-10 01:30 | NUR ---
rn ms notes endorse to marina brooks for continuity of care, abx given as ordered, patient is sleeping comfortable at this time.
[2019-08-10] MEDS: METRONIDAZOLE 500MG/ NS 100ML 500 MG in PREMIX 1 EA IV SCH (06:01)
[2019-08-10] MEDS: IPRATROPIUM NEB FS 0.5 MG/2.5 ML AMPUL.NEB IH SCH ×3 (07:38→16:04)
--- NOTE | 2019-08-10 08:00 | NUR ---
MS RN NOTE RECEIVED PATIENT IN BED .ALERT ORIENTED X3 , ON 1L OF O2 NC .NO SOB NOTED AT THIS TIME ,LT ARM IV HL INTACT , NO C\O PAIN OR DISCOMFORT , WIRE HARNESS DESIGN ENGINEER AT BEDSIDE.ATE BREAKFAST WELL , BED IN LOWEST AND LOCKED POSITION , PER DR PETERSON JACOBS TO COLLECT FLUIDS FROM THORACENTESIS TO CYTOLOGY, WILL CONT TO MONITOR PLAN OF CARE DISCUSSED, WITH PATIENT
[2019-08-10] MEDS: AGGRENOX(ASA/DIPYRIDAMOLE) 1 CAP CPMP.12HR PO SCH ×2 (09:00→21:14)
[2019-08-10] MEDS: ESCITALOPRAM OXALATE (10 MG) 10 MG TABLET PO SCH (09:35)
[2019-08-10] MEDS: hydrALAZINE HCL 50 MG TABLET PO SCH ×2 (09:35→16:15)
[2019-08-10] MEDS: BUMETANIDE (1 MG) 1 MG TABLET PO SCH ×2 (09:35→16:15)
[2019-08-10] MEDS: CALCIUM CARBONATE 500 MG TAB.CHEW PO SCH ×2 (09:36→16:15)
[2019-08-10] MEDS: ALLOPURINOL 100 MG TABLET PO SCH (09:37)
[2019-08-10] MEDS: DONEPEZIL 5 MG TABLET PO SCH (09:41)
--- NOTE | 2019-08-10 09:41 | NUR ---
ms rn note hold Aggrenox will have thoracentesis
--- NOTE | 2019-08-10 11:00 | NUR ---
MS RN NOTE ST AT BEDSIDE, SWALLOW EVAL DONE OK TO USE STROW
[2019-08-10] MEDS: METRONIDAZOLE 500 MG TABLET PO SCH ×2 (12:11→17:12)
--- NOTE | 2019-08-10 12:12 | NUR ---
MS CARTER NOTE THORACENTESIS DONE 240 ML REMOVED BP 159/60 BP Addendum: 08/10/19 at 1714 by JACQUELINE GONZALEZ RN DRY DRESSING ON LT SIDE OF BACK INTACT ,NO BLEEDING NOTED S\P THORACENTESIS
--- NOTE | 2019-08-10 12:37 | NUR ---
MS RN NOTE DIETARY AT BEDSIDE ,DIET TEACHING DONE CHEST X RAY AT BEDSIDE
--- NOTE | 2019-08-10 12:50 | NUR ---
MS RN NOTE FLUID FROM THORACENTESIS SENT TO LAB
--- NOTE | 2019-08-10 13:36 | NUR ---
ms rn note pt eval done able to sit at edge of bed
--- NOTE | 2019-08-10 13:38 | NUR ---
ms rn note Shreyas ragland rn chief meter reader at bedside
[2019-08-10] MEDS: SOD FERRIC GLUC 125 MG in IV NS 0.9% 100 ML IV SCH (13:51)
[2019-08-10 14:57] LABS: BASOPHILS % (AUTO) 0.1 % (0.0-2.0); EOSINOPHILS % (AUTO) 0.5 % (0.0-6.0); HEMATOCRIT 31 % (39-51); HEMOGLOBIN 10.3 g/dL (13.5-17.5); LYMPHOCYTES # (AUTO) 1.1 /CMM (0.8-4.8); LYMPHOCYTES % (AUTO) 17.8 % (20.0-44.0); MEAN CORPUSCULAR HGB CONC 33 g/dl (31.0-36.0); MEAN CORPUSCULAR VOLUME 102 fL (80-96); MONOCYTES # (AUTO) 0.4 /CMM (0.1-1.30); MONOCYTES % (AUTO) 5.8 % (2.0-12.0); NEUTROPHILS # (AUTO) 4.8 /CMM (1.8-8.9); NEUTROPHILS % (AUTO) 75.8 % (43.0-81.0); PLATELET COUNT (AUTO) 53 /CMM (150-450); RED BLOOD CELL COUNT(AUTO) 3.07 MIL/uL (4.5-6.0); WHITE BLOOD COUNT (AUTO) 6.3 K/uL (4.3-11.0)
[2019-08-10 15:12] LABS: CALCIUM, SERUM 8.5 mg/dL (8.5-10.1); CARBON DIOXIDE 31 mmol/L (21-32); CHLORIDE 107 mmol/L (98-107); CREATININE 2.3 mg/dL (0.6-1.3); GLUCOSE 103 mg/dL (74-106); POTASSIUM 4.2 mmol/L (3.5-5.1); SODIUM SERUM 144 mmol/L (136-145); UREA NITROGEN, BLOOD 51 mg/dL (7-18)
[2019-08-10 15:27] LABS: NEUTROPHILS % (MANUAL) 73 (42-76)
[2019-08-10 15:28] LABS: LYMPHOCYTES % (MANUAL) 20 % (16-48); MONOCYTES % (MANUAL) 7 % (0-11.0)
--- NOTE | 2019-08-10 18:39 | NUR ---
MS RN NOTE CAREGIVER AT BEDSIDE, KEEP CLEAN DRY ,TURN REAPPOSITION ,HAVING DINNER ,NOT IN DISTRESS
--- NOTE | 2019-08-10 19:12 | NUR ---
RN OPENING NOTES RECEIVED PATIENT IN BED, AWAKE, A/OX3, ON 1L O2 VIA NC, TOLERATING WELL, NO SOB NOTED. NO C/O PAIN OR DISCOMFORT. PRIVATE SPINNING OPERATOR NOTED AT BEDSIDE. IV SITES FLUSHING AND PATENT, SITES C/D/I. SAFETY MEASURES IN PLACE; BED IN LOWEST AND LOCKED POSITION, SIDE RAILS UP X2, CL WITHIN REACH. WILL CONT TO MONITOR PT CLOSELY.
--- NOTE | 2019-08-10 20:24 | NUR ---
REPORT GIVEN TO RAUL PERALES FOR MAXIMINO.
--- NOTE | 2019-08-10 20:25 | NUR ---
RN NOTES, RECEIVED PATIENT FOR CONTINUATION OF CARE FORM RAUL RUSSO PATIENT ASLEEP AT THIS TIME, BUT AROUSABLE TP VERBAL STIMULI, BREATHING EVEN AND UNLABORED, NO SOB/ACUTE DISTRESS NOTED AT THIS TIME, CAREGIVER AT BEDSIDE, WILL CONTINUE TO MONITOR CLOSELY.
[2019-08-10] MEDS: ATORVASTATIN 40 MG TABLET PO SCH (21:14)
[2019-08-11] MEDS: CEFTRIAXONE 1 G in IV D5W 50 ML IV SCH ×2 (00:27→14:04)
[2019-08-11] MEDS: METRONIDAZOLE 500 MG TABLET PO SCH ×4 (00:27→17:20)
[2019-08-11 04:00] VITALS: BP 157/75
[2019-08-11 04:54] VITALS: BP_SYST 157; BP_SYST 167; BP_DIAS 75; BP_DIAS 84
--- NOTE | 2019-08-11 06:57 | NUR ---
RN NOTES, NO SIGNIFICANT CHANGE IN CONDITION DURING THE NIGHT, BREATHING EVEN ND UNLABORED, NO SOB/ACUTE DISTRESS NOTED, WITH STABLE VS, PATIENT WILL HAVE HEMODIALYSIS TODAY, WILL ENDORSE CONTINUITY OF CARE TO ONCOMING NURSE.
--- NOTE | 2019-08-11 07:00 | NUR ---
MS RN NOTES OPENING RECEIVED PATIENT IN BED, PATIENT IS ASLEEP BUT EASILY WOKEN WITH NAME AND TOUCH. PATIENT IS A/O X3 IS CURRENTLY ON 1L O2 VIA NC. PATIENT IS TOLERATING OXYGEN AND SHOWS NO SIGNS ANS SYMPTOMS OF DISTRESS .PATIENT HAS PRIVATE LABORATORY ANIMAL CARETAKER NOTED AT BEDSIDE. IV SITES INTACT FLUSHING AND INTACT. CDI DRESSING . SAFETY MEASURES IN PLACE ; BED LOCK AND LOWEST POSITION CALL LIGHT WITH IN REACH.
[2019-08-11 07:15] LABS: EOSINOPHILS % (AUTO) 0.2 % (0.0-6.0); HEMATOCRIT 32 % (39-51); HEMOGLOBIN 10.6 g/dL (13.5-17.5); LYMPHOCYTES # (AUTO) 1.1 /CMM (0.8-4.8); LYMPHOCYTES % (AUTO) 11.1 % (20.0-44.0); MEAN CORPUSCULAR HGB CONC 33 g/dl (31.0-36.0); MEAN CORPUSCULAR VOLUME 102 fL (80-96); MONOCYTES # (AUTO) 0.5 /CMM (0.1-1.30); MONOCYTES % (AUTO) 4.8 % (2.0-12.0); NEUTROPHILS # (AUTO) 8.5 /CMM (1.8-8.9); NEUTROPHILS % (AUTO) 83.9 % (43.0-81.0); PLATELET COUNT (AUTO) 70 /CMM (150-450); RED BLOOD CELL COUNT(AUTO) 3.18 MIL/uL (4.5-6.0); WHITE BLOOD COUNT (AUTO) 10.2 K/uL (4.3-11.0)
[2019-08-11 07:40] LABS: CALCIUM, SERUM 8.7 mg/dL (8.5-10.1); CARBON DIOXIDE 29 mmol/L (21-32); CHLORIDE 103 mmol/L (98-107); CREATININE 2.2 mg/dL (0.6-1.3); GLUCOSE 109 mg/dL (74-106); POTASSIUM 3.8 mmol/L (3.5-5.1); SODIUM SERUM 136 mmol/L (136-145); UREA NITROGEN, BLOOD 53 mg/dL (7-18)
[2019-08-11 08:46] LABS: LYMPHOCYTES % (MANUAL) 7 % (16-48); MONOCYTES % (MANUAL) 4 % (0-11.0); NEUTROPHILS % (MANUAL) 89 (42-76)
[2019-08-11] MEDS: hydrALAZINE HCL 50 MG TABLET PO SCH ×2 (09:00→17:38)
[2019-08-11] MEDS: IPRATROPIUM NEB FS 0.5 MG/2.5 ML AMPUL.NEB IH SCH ×3 (09:01→17:00)
--- NOTE | 2019-08-11 09:18 | NUR ---
MS RN NOTES BP MEDICATIONS HOLD DUE TO HD
--- NOTE | 2019-08-11 09:18 | NUR ---
MS RN NOTES PATIENT CURRENTLY RECEIVING HD . SITTER AT BED SIDE
[2019-08-11] MEDS: DONEPEZIL 5 MG TABLET PO SCH (09:19)
[2019-08-11] MEDS: CALCIUM CARBONATE 500 MG TAB.CHEW PO SCH ×2 (09:19→17:20)
[2019-08-11] MEDS: ALLOPURINOL 100 MG TABLET PO SCH (09:19)
[2019-08-11] MEDS: AGGRENOX(ASA/DIPYRIDAMOLE) 1 CAP CPMP.12HR PO SCH ×2 (09:20→21:49)
[2019-08-11] MEDS: BUMETANIDE (1 MG) 1 MG TABLET PO SCH ×2 (09:29→17:20)
[2019-08-11] MEDS: ESCITALOPRAM OXALATE (10 MG) 10 MG TABLET PO SCH (09:35)
[2019-08-11 12:00] VITALS: BP 164/80
[2019-08-11] MEDS: SOD FERRIC GLUC 125 MG in IV NS 0.9% 100 ML IV SCH (14:29)
--- NOTE | 2019-08-11 19:10 | NUR ---
MS RN CLOSING NOTES WILL ENDORSED TO PM SHIFT. PATIENT A/O X4 PATIENT IS AWAKE. PATIENT IS ON 1 L NC . PATIENT SHOWS NO SIGNS OF RESPIRATORY DISTRESS . NO PAIN. NO SOB .NO CHEST PAIN. PATIENT GETS EASILY FATIGUE. PATIENT HAS BED SIDE SITTER . BED LOCK AND LOWEST POSITION, CALL LIGHT WITH IN REACH. NOTIFIED FAMILY OF TREATMENT PLAN , AND MEDICATION MANAGEMENT
--- NOTE | 2019-08-11 19:20 | NUR ---
RN OPENING NOTES: PATIENT ASLEEP BUT EASILY AROUSABLE. NO RESPIRATORY DISTRESS. NO PAIN. CAREGIVER AT BEDSIDE. SAFETY PRECAUTIONS IMPLEMENTED. BED LOCKED AND IN LOWEST POSITION. UPON ENDORSEMENT, PATIENT HAD HD TODAY, 1L REMOVED. (L) AC 18G INTACT, PATENT, AND FLUSHING WELL. (R) CHEST WALL HD CATH INTACT. CALL LIGHT PLACED WITHIN REACH. WILL CONT. TO MONITOR.
[2019-08-11 20:00] VITALS: BP_SYST 152; BP_SYST 158; BP_DIAS 72; BP_DIAS 76
--- NOTE | 2019-08-11 21:45 | NUR ---
RN NOTE: SWETA DESAI MADE AWARE ABOUT PATIENT'S PLATELET 70. PER TRANSMISSION CALIBRATION ENGINEER, OK TO GIVE AGGRENOX. NO ACTIVE BLEEDING NOTED. WILL CONT. TO MONITOR.
[2019-08-11] MEDS: ATORVASTATIN 40 MG TABLET PO SCH (21:49)
[2019-08-12] MEDS: METRONIDAZOLE 500 MG TABLET PO SCH ×5 (00:02→23:38)
[2019-08-12] MEDS: CEFTRIAXONE 1 G in IV D5W 50 ML IV SCH (00:02)
[2019-08-12 04:00] VITALS: BP 154/69
--- NOTE | 2019-08-12 07:00 | NUR ---
MS RN OPENING NOTES RECIVED PATIENT FROM PM SHIFT PATIENT IS A/O X3 PATIENT IS ASLEEP BUT EASILY WOKEN WITH NAME AND TOUCH . PATIENT SPEAKS BURMESE. AND HAS DREDGING INSPECTOR AT BED SIDE. PATIENT HAS SARAL REDNESS, BUT IS COVERED PER WOUND CARE TREATMENT. PATIENT HAS R CW CATH AND LEFT AC # 18 , LFA . PATIENT IS ON 1L OXYGEN PATIENT IS SATURATING WELL. PATIENT SHOWS NO SIGNS OF ACUTE RESPIRATORY DISTRESS. PATIENTS BREATHING IS EVEN AND UNLABORED. SAFETY PRECAUTIONS IMPLEMENTED PER HOSPITAL POLICY. BED LOCKED AND LOWEST POSITION, CALL LIGHT WITH IN REACH .
--- NOTE | 2019-08-12 07:10 | NUR ---
RN CLOSING NOTES: PATIENT IN BED, ASLEEP, EASILY AROUSABLE. CAREGIVER AT BEDSIDE. NO RESPIRATORY DISTRESS. NO PAIN. CAREGIVER AT BEDSIDE. SAFETY PRECAUTIONS IMPLEMENTED. BED LOCKED AND IN LOWEST POSITION. CALL LIGHT PLACED WITHIN REACH. ENDORSED TO NEXT SHIFT NURSE FOR CONTINUITY OF CARE.
[2019-08-12 07:14] LABS: BASOPHILS % (AUTO) 0.1 % (0.0-2.0); EOSINOPHILS % (AUTO) 0.9 % (0.0-6.0); HEMATOCRIT 33 % (39-51); HEMOGLOBIN 10.8 g/dL (13.5-17.5); LYMPHOCYTES # (AUTO) 1.3 /CMM (0.8-4.8); LYMPHOCYTES % (AUTO) 21.3 % (20.0-44.0); MEAN CORPUSCULAR HGB CONC 33 g/dl (31.0-36.0); MEAN CORPUSCULAR VOLUME 102 fL (80-96); MONOCYTES # (AUTO) 0.4 /CMM (0.1-1.30); MONOCYTES % (AUTO) 6.6 % (2.0-12.0); NEUTROPHILS # (AUTO) 4.4 /CMM (1.8-8.9); NEUTROPHILS % (AUTO) 71.1 % (43.0-81.0); PLATELET COUNT (AUTO) 56 /CMM (150-450); RED BLOOD CELL COUNT(AUTO) 3.23 MIL/uL (4.5-6.0); WHITE BLOOD COUNT (AUTO) 6.2 K/uL (4.3-11.0)
[2019-08-12 07:25] LABS: CALCIUM, SERUM 8.7 mg/dL (8.5-10.1); CARBON DIOXIDE 29 mmol/L (21-32); CHLORIDE 105 mmol/L (98-107); CREATININE 1.9 mg/dL (0.6-1.3); GLUCOSE 104 mg/dL (74-106); POTASSIUM 3.6 mmol/L (3.5-5.1); SODIUM SERUM 139 mmol/L (136-145); UREA NITROGEN, BLOOD 41 mg/dL (7-18)
[2019-08-12 08:25] LABS: EOSINOPHILS % (MANUAL) 3 % (0-4); LYMPHOCYTES % (MANUAL) 26 % (16-48); MONOCYTES % (MANUAL) 5 % (0-11.0); NEUTROPHILS % (MANUAL) 66 (42-76)
[2019-08-12] MEDS: AGGRENOX(ASA/DIPYRIDAMOLE) 1 CAP CPMP.12HR PO SCH ×2 (09:27→20:56)
[2019-08-12] MEDS: BUMETANIDE (1 MG) 1 MG TABLET PO SCH ×2 (09:27→17:26)
[2019-08-12] MEDS: CALCIUM CARBONATE 500 MG TAB.CHEW PO SCH ×2 (09:28→17:26)
[2019-08-12] MEDS: ESCITALOPRAM OXALATE (10 MG) 10 MG TABLET PO SCH (09:28)
[2019-08-12] MEDS: DONEPEZIL 5 MG TABLET PO SCH (09:29)
[2019-08-12] MEDS: ALLOPURINOL 100 MG TABLET PO SCH (09:29)
[2019-08-12] MEDS: hydrALAZINE HCL 50 MG TABLET PO SCH ×2 (09:29→17:27)
[2019-08-12] MEDS ORDERED: CEFT1FRO2 IV (11:06)
[2019-08-12] MEDS ORDERED: HYDR-4077 PO (11:06)
[2019-08-12] MEDS ORDERED: METR500T PO (11:06)
[2019-08-12 12:00] VITALS: BP 139/65
--- NOTE | 2019-08-12 12:00 | NUR ---
RN MS NOTES CALL [employer] MA[employer] - CONFIRM TRANSFER CALLED CASE MANGEMENT - CONFIRM TRANSFER
[2019-08-12] MEDS: SOD FERRIC GLUC 125 MG in IV NS 0.9% 100 ML IV SCH (15:30)
--- NOTE | 2019-08-12 15:30 | NUR ---
MS RN NOTES TALKED TO ABDIAZIZ GRIMALDO- PATIENT WAS DECLINE DUE TO PT REASONS. FAMILY AND PATIENT NOTIFIED.
[2019-08-12] MEDS: IPRATROPIUM NEB FS 0.5 MG/2.5 ML AMPUL.NEB IH SCH (16:03)
--- NOTE | 2019-08-12 19:30 | NUR ---
COTTON OPENER NOTES PATIENT ENDORSED TO PM SHIFT PATIENT IS A/O X3 PATIENT IS AWAKE BUT EASILY WOKEN WITH NAME AND TOUICH . PATIENT HAS SALESPERSON CORSETS AT BED SIDE. PATIENT Q2H REPOSITION PER HOSPITAL PROTOCOL. PATIENT IS SATURATING WELL SHOWS NO SIGNS OF ACUTE RESPIRATORY DISTRESS. PATIENT BREATHING IS EVEN AND UNLABORED. SAFETY MAINTAINED, BED LOCKED AND LOWEST POSITION, CALL LIGHT WITH IN REACH. ALL SAFETY PRECAUTIONS IMPLEMENTED PER HOSPITAL POLICY.
[2019-08-12 20:00] VITALS: BP 136/52
--- NOTE | 2019-08-12 20:41 | NUR ---
patient recieved with a caregiver at bedside, with the same ivf on.
[2019-08-12] MEDS: ATORVASTATIN 40 MG TABLET PO SCH (22:42)
--- NOTE | 2019-08-12 23:14 | NUR ---
CRUISE AGENT OF CARE 2314 RECEIVED PATIENT FROM RAUL SAINZ, AT 2314. PATIENT CURRENTLY ASLEEP, EASILY AROUSABLE TO NAME. PATIENT HAS ASSISTANT SALES MANAGER AT BED SIDE. NO RESPIRATORY DISTRESS. NO SHORTNESS OF BREATH NOTED. NO COMPLAINTS OF PAIN OR DISCOMFORT AT THIS TIME. SAFETY PRECAUTIONS IMPLEMENTED; CALL LIGHT WITHIN REACH, BED LOCKED, BED LOWEST POSITION, BILATERAL UPPER SIDERAILS UP. WILL CONTINUE TO MONITOR.
[2019-08-13] MEDS: CEFTRIAXONE 1 G in IV D5W 50 ML IV SCH (00:02)
[2019-08-13 04:00] VITALS: BP 150/80
[2019-08-13] MEDS: METRONIDAZOLE 500 MG TABLET PO SCH ×3 (05:10→17:15)
--- NOTE | 2019-08-13 06:56 | NUR ---
RN CLOSING NOTES PATIENT IS CURRENTLY ASLEEP, EASILY AROUSABLE TO NAME. FOOD PRODUCTION SUPERVISOR AT BED SIDE. NO RESPIRATORY DISTRESS. NO SHORTNESS OF BREATH NOTED. ALL NEEDS MET AT THIS TIME. SAFETY PRECAUTIONS IMPLEMENTED; CALL LIGHT WITHIN REACH, BED LOCKED, BED LOWEST POSITION, BILATERAL UPPER SIDERAILS UP. WILL CONTINUE TO MONITOR AND THEN WILL ENDORSE TO DAY SHIFT NURSE FOR CONTINUITY OF CARE.
--- NOTE | 2019-08-13 07:17 | NUR ---
RN NOTES REPORT GIVEN TO RAUL CONKLIN, TO HAND REPORT OVER TO MAIN NURSE, RAUL SAINZ.
--- NOTE | 2019-08-13 07:43 | NUR ---
RECEIVED WITH CAREGIVER AT BEDSIDE.
[2019-08-13 08:00] VITALS: BP 176/86
[2019-08-13] MEDS: AGGRENOX(ASA/DIPYRIDAMOLE) 1 CAP CPMP.12HR PO SCH (08:56)
[2019-08-13] MEDS: ESCITALOPRAM OXALATE (10 MG) 10 MG TABLET PO SCH (08:56)
[2019-08-13] MEDS: DONEPEZIL 5 MG TABLET PO SCH (08:56)
[2019-08-13] MEDS: CALCIUM CARBONATE 500 MG TAB.CHEW PO SCH ×2 (08:56→16:56)
[2019-08-13] MEDS: ALLOPURINOL 100 MG TABLET PO SCH (08:57)
[2019-08-13] MEDS: BUMETANIDE (1 MG) 1 MG TABLET PO SCH ×2 (08:57→16:57)
[2019-08-13] MEDS: hydrALAZINE HCL 50 MG TABLET PO SCH ×2 (08:58→16:57)
--- NOTE | 2019-08-13 09:37 | NUR ---
patient refused diet in am, prefers doughnuts ,dietary called and informed that the patient is refusing diet, and requested for steak, dietary department forensics analyst will come to see the patient.
[2019-08-13] MEDS: IPRATROPIUM NEB FS 0.5 MG/2.5 ML AMPUL.NEB IH SCH ×2 (09:52→13:19)
--- NOTE | 2019-08-13 10:38 | NUR ---
with orders for discharge, case management [place] [id number] Eagle paged as the patient is for hemodialysis today but no orders made.adelina left with the exchange, awaiting response
--- NOTE | 2019-08-13 10:48 | NUR ---
case management paged as the patient orders for discharge but no incation in the order where the patient will bedicahrge to, and hd schedule is still pedinh waiting for the call back of Dr Guy. with caregiver at bedside
--- NOTE | 2019-08-13 11:07 | NUR ---
corn breeder called and inform will come at 1200 hours for the hemodiaalysis.
--- NOTE | 2019-08-13 11:51 | NUR ---
physical therapy in and treat patienr micheal barrera pulled out by the patient, will reinsert one.
--- NOTE | 2019-08-13 12:55 | NUR ---
report called to [facility] room number 4424 bed c , but said that they have to check if the patient transfered is approved by the certified medical technician assistant and will call back. case carlos manuel taked to the facility and is approved and can call and given report , berry picker machine operator time 6pm. currently on hemodialysis and tolerasting well.
[2019-08-13 13:00] VITALS: BP 149/78
--- NOTE | 2019-08-13 14:02 | NUR ---
attempted to give report to the nurse but said that the rehabilitation team are still in am meeting and needs approval of the transfer. does not take the report yet , RAUL Sutton. the patient liason is still on a meeting and has not given them the papers for the approval of the transfer,. darwinl if the paper is in and ready. patient is for transfer to [facility].
--- NOTE | 2019-08-13 14:15 | NUR ---
address given to the caregiver to give to the [id number] [place] [address]. charge nurse is aware that the report was yet accepted by the facility pending the approval paper form the patient liason.currently on hemodialysis ,patient is with no untoward manifestation
--- NOTE | 2019-08-13 15:49 | NUR ---
HEMIDIALYSIS COMPLW Addendum: 08/13/19 at 1550 by EMELI WEBBER RN COMPLETED AND PATIENT TOLERATED THE PROCEDURE. CURRENTLY ASLLEP/
[2019-08-13] MEDS: SOD FERRIC GLUC 125 MG in IV NS 0.9% 100 ML IV SCH (15:52)
[2019-08-13 16:00] VITALS: BP 142/82
--- NOTE | 2019-08-13 16:35 | NUR ---
REPORT GIVEN TO YEISON FOR THE TRANSFER.
[2019-08-13 16:57] VITALS: BP 170/80
--- NOTE | 2019-08-13 17:26 | NUR ---
[facility] IN [place], CAREGIVER TALKED TO THE AND THE DISCHARGE INSTRUCTIONS AND PAPERS SIGNED BY TWO RN AND THE CARE GIVE, IV CANNULA DISCONTINUED AND DRESSING APPPLIED. CAREGIVER GIVEN INSTRUCTION AND WILL BE TRANSFERED TO [facility] IN STABLE CONDITION FOR FURTHER CARE,WITH CAREGIVER WITH THE PATIENT Addendum: 08/13/19 at 1843 by EMELI WEBBER RN discharge per joseph with the ambulance personell.in stable condition. medications due given , bp 170/86 post hemodialysis. hydralazine dose due given . Addendum: 08/13/19 at 1844 by EMELI WEBBER RN report given to the ambulance personell.
== END 2019-08-13 17:36 | disposition short-term general hospital (02) | DRG 177 ==
LOC: ER 20:59 → TELE1 23:01 → MEDSG1 08-08 12:12
PROVIDERS: ADMIT Hospitalist; ATTEND Nurse Practitioner Acute Care
PROC: 5A1D70Z Performance of Urinary Filtration, Intermittent, Less than 6 Hours Per Day (ICD-10-PCS; 2019-08-09)
PROC: 0W9B3ZZ Drainage of Left Pleural Cavity, Percutaneous Approach (ICD-10-PCS; principal; 2019-08-10)
DX: J69.0 Pneumonitis due to inhalation of food and vomit (principal); I50.33 Acute on chronic diastolic (congestive) heart failure; N18.6 End stage renal disease; I21.A1 Myocardial infarction type 2; I13.2 Hypertensive heart and chronic kidney disease with heart failure and with stage 5 chronic kidney disease, or end stage renal disease; G93.40 Encephalopathy, unspecified; J90 Pleural effusion, not elsewhere classified; D69.6 Thrombocytopenia, unspecified; D63.8 Anemia in other chronic diseases classified elsewhere; F03.90 Unspecified dementia, unspecified severity, without behavioral disturbance, psychotic disturbance, mood disturbance, and anxiety; Z79.899 Other long term (current) drug therapy; Z86.73 Personal history of transient ischemic attack (TIA), and cerebral infarction without residual deficits; Z87.01 Personal history of pneumonia (recurrent); Z90.5 Acquired absence of kidney; Z96.653 Presence of artificial knee joint, bilateral; Z99.2 Dependence on renal dialysis; M81.0 Age-related osteoporosis without current pathological fracture; I27.20 Pulmonary hypertension, unspecified; M19.90 Unspecified osteoarthritis, unspecified site; E78.5 Hyperlipidemia, unspecified; F09 Unspecified mental disorder due to known physiological condition; N40.0 Benign prostatic hyperplasia without lower urinary tract symptoms; Z79.82 Long term (current) use of aspirin; R13.10 Dysphagia, unspecified; E80.6 Other disorders of bilirubin metabolism; Z98.61 Coronary angioplasty status; I25.10 Atherosclerotic heart disease of native coronary artery without angina pectoris; I35.0 Nonrheumatic aortic (valve) stenosis; N28.1 Cyst of kidney, acquired
CPT/HCPCS: 36415; 71045-TC; 76942-TC; 80048-TC; 80053-TC; 80061-TC; 80076-TC; 82040-TC; 82728-TC; 83540-TC; 83605-TC; 83735-TC; 83880; 84100-TC; 84484-TC; 85025-TC; 85730-TC; 86706; 87040-TC; 87081-TC; 87340; 88112-TC; 88305-TC; 88312-TC; 89051-TC; 90935-TC; 92526; 92611-TC; 94761-TC; 94799-TC; 97110-TC; 97530-TC; A4216; A4349; G0378; J0696; J1940; J2405; J2916; J3490; J7030; J7050; J7060